=== PATIENT | male | born 1965 | race Caucasian/White ===

== ENCOUNTER → 2019-01-04 | Outpatient (CLI) | payer BC ==
[2019-01-04 16:10] LABS: HGB 14.5 gm/dL (13.0-17.5); MCH 31.1 pg (25.0-35.0); MCHC 31.6 g/dL (31.0-37.0); MCV 98.6 fL (80.0-100.0); Mean Platelet Volume 8.3; Platelet Count 162 k/uL (150-450); RBC 4.66 m/uL (4.30-5.90); WBC 4.7 k/uL (3.8-10.6)
[2019-01-04 16:17] LABS: ALT 41 U/L (21-72); AST 22 U/L (17-59); Albumin 4.2 g/dL (3.5-5.0); Alkaline Phosphatase 81 U/L (38-126); Anion Gap 9 mmol/L; Blood Urea Nitrogen 22 mg/dL (9-20); Calcium 9.1 mg/dL (8.4-10.2); Carbon Dioxide 24 mmol/L (22-30); Chloride 108 mmol/L (98-107); Glucose 98 mg/dL (74-99); Potassium 4.7 mmol/L (3.5-5.1); Sodium 141 mmol/L (137-145); Total Bilirubin 0.7 mg/dL (0.2-1.3); Total Protein 6.7 g/dL (6.3-8.2)
[2019-01-04 16:18] LABS: Partial Thromboplastin Time 24.9 sec (22.0-30.0); Prothrombin Time 10.5 sec (9.0-12.0)
[2019-01-04 16:54] LABS: Appearance,Urine Clear (Clear); Bilirubin,Urine Negative (Negative); Blood,Urine Negative (Negative); Color,Urine Yellow; Glucose,Urine (UA) Negative (Negative); Ketones,Urine Trace (Negative); Leukocyte Esterase,Urine Negative (Negative); Nitrite,Urine Negative (Negative); Protein,Urine Negative (Negative); Specific Gravity,Urine 1.014 (1.001-1.035); Urobilinogen,Urine <2.0 mg/dL (<2.0)
== END | disposition home or self-care (01) ==
LOC: LABPAT 15:30
PROVIDERS: ATTEND Orthopaedic Surgery
DX: Z01.812 Encounter for preprocedural laboratory examination (principal)
CPT/HCPCS: 80053; 81003; 85027; 85610; 85730; 87070

== ENCOUNTER 2019-01-15 05:32 | Inpatient (IN) | payer BC ==
[~2019-01-15 05:32] MED LIST: ACETAMINOPHEN TAB 500 MG TAB PO ONE; MELOXICAM 7.5 MG TAB PO ONE; TRANEXAMIC ACID 1,000 MG in SODIUM CHLORIDE 0.9% 100 ML IVPB ONE; ceFAZolin IN SWFI 2 GM/20 ML SYRINGE IVP ONE
[2019-01-15] MEDS ORDERED: fentaNYL (PF) 50 MCG/ML 2 ML AMP IV PRN (05:38)
[2019-01-15] MEDS ORDERED: LIDOCAINE 1% 20 ML VIAL (10MG/ML) FOR IV START INTRADERMA PRN (05:38)
[2019-01-15] MEDS ORDERED: MIDAZOLAM (PF) 2 MG/2 ML VIAL IV PRN (05:38)
[2019-01-15] MEDS ORDERED: ROPIVACAINE 246.25 MG, EPINEPHrine 0.5 MG, KETOROLAC 30 MG, cloNIDine HCL/PF 80 MCG, WA... MISCELLANE ONE ×5 (05:51)
[2019-01-15] MEDS: LACTATED RINGERS 1,000 ML IV SCH (08:17)
[2019-01-15] MEDS ORDERED: ROPIVACAINE 1,100 MG, SODIUM CHLORIDE 0.9% 500 ML 330 ML MISCELLANE PRN ×2 (08:47)
--- NOTE | 2019-01-15 08:54 | P.ONQ ---
Anesthesiology Proc Note - PNB - Peripheral Nerve Block Performed Right Adductor Canal Infusion Time Out Performed: Yes Procedure Start Time: 08:20 Indication: Acute Post-Operative Pain Specifically requested for management of pain by DrMora: Kane Hernandez Sedation Type: Sedate with meaningful contact maintained Preparation: Sterile Prep Position: Supine Catheter Depth at Skin (cm): 8 Catheter: Indwelling Needle Types: Other (see comment) (Pajunk) Needle Size: 100mm (4") Needle Gauge: 18 Technique: Ultrasound Injectate: 0.5% Ropivacaine (see comment for volume) (20) Blood Aspirated: No Pain Paresthesia on Injection Noted: No Resistance on Injection: Normal Events: Uneventful and Well Tolerated
[2019-01-15] MEDS ORDERED: hydrOXYzine PAMOATE 25 MG CAP PO PRN (08:59)
[2019-01-15] MEDS ORDERED: BISACODYL 10 MG SUPP RECTAL PRN (08:59)
[2019-01-15] MEDS ORDERED: DIAZEPAM 5 MG TAB PO PRN (08:59)
[2019-01-15] MEDS ORDERED: NA PHOS,M-B/NA PHOS,DI-BA 133 ML ENEMA RECTAL PRN (08:59)
[2019-01-15] MEDS ORDERED: HYDROcodone/APAP 5-325MG 1 EACH TAB PO PRN (08:59)
[2019-01-15] MEDS ORDERED: NALOXONE 0.4 MG/ML 1 ML VIAL IV PRN (08:59)
[2019-01-15] MEDS ORDERED: HYDROmorphone 1 MG/ML 1 ML SYRINGE IVP PRN (08:59)
[2019-01-15] MEDS ORDERED: HYDROmorphone 0.5 MG/0.5 ML SYRINGE IVP PRN ×2 (08:59)
[2019-01-15] MEDS ORDERED: ONDANSETRON 4 MG/2 ML VIAL IVP PRN (08:59)
[2019-01-15] MEDS ORDERED: MAGNESIUM HYDROXIDE 2,400 MG/10 ML CUP PO PRN (08:59)
[2019-01-15] MEDS ORDERED: RIVAROXABAN 10 MG TAB PO SCH (09:00)
[2019-01-15] MEDS ORDERED: MIDAZOLAM 2 MG/2 ML VIAL ONE (09:21)
[2019-01-15] MEDS ORDERED: GLYCOPYRROLATE 0.2 MG/ML 2 ML VIAL ONE (09:21)
[2019-01-15] MEDS ORDERED: TRANEXAMIC ACID 1,000 MG/10 ML VIAL ONE (09:21)
[2019-01-15] MEDS ORDERED: fentaNYL (PF) 50 MCG/ML 2 ML AMP ONE (09:21)
[2019-01-15] MEDS ORDERED: SODIUM CHLORIDE 0.9% 100 ML BAG ONE (09:21)
[2019-01-15] MEDS ORDERED: HYDROmorphone (PF) 1 MG/ML ONE (09:21)
[2019-01-15] MEDS ORDERED: PROPOFOL 10 MG/ML 20 ML VIAL IV ONE (09:21)
[2019-01-15] MEDS ORDERED: PHENYLEPHRINE-0.9% NACL SYG 1 MG/10 ML SYRINGE ONE (09:21)
[2019-01-15] MEDS ORDERED: ceFAZolin 3,000 MG in SODIUM CHLORIDE 0.9% IRRIGATIO 3,000 ML IRRIGATION ONE (09:58)
[2019-01-15] MEDS ORDERED: LACTATED RINGERS 1,000 ML IV ONE (10:24)
--- NOTE | 2019-01-15 10:56 | P.OP ---
Date of Procedure: 01/15/19 Preoperative Diagnosis: Severe osteoarthritis right knee Postoperative Diagnosis: Severe osteoarthritis right knee Procedure(s) Performed: Right total knee arthroplasty Implants: Blmu and Nephew Journey II CR Oxinium cruciate retaining femoral component size 6, right Blum & Nephew Journey right nonporous tibial baseplate size 6 Blum & Nephew Journey II, XLPE Deep Dished articular insert, size 11 mm, Size 5 -6 right Blum & Nephew Journey BCS resurfacing oval patellar component, 32 mm All components were cemented using Palacos R bone cement.. The articulation is Oxinium on polyethylene. Anesthesia: spinal Surgeon: Kane Hernandez Associate Professor #1: Hilda Flanagan Estimated Blood Loss (ml): 25 Pathology: other (Bone and cartilage) Condition: stable Disposition: PACU Indications for Procedure: After failure of conservative treatment we discussed the surgical and nonsurgical treatment options at length. Patient wishes to proceed with a total knee arthroplasty. Complications specific to this procedure were discussed at length, including but not limited to infection, bleeding, stiffness , and nerve injury. Patient is aware of all these complications and informed consent was obtained Operative Findings: The operative findings are consistent with severe osteoarthritis of the right knee Description of Procedure: Patient was seen in the preoperative area consent was reviewed and operative site was marked with a skin marker. An adductor canal pain catheter was placed by anesthesia in the preoperative area. Patient was then brought to the operating room and given preoperative antibiotics intravenously. A spinal anesthetic was administered by the anesthesia department. A tourniquet was placed on the upper thigh and the lower extremity was prepped and draped in usual sterile fashion. A gram of transexamic acid was given. A universal timeout was then performed which confirmed the patient's name, surgical site, ALLERGIES, and consent. The lower extremity was then exsanguinated and tourniquet was inflated to 250 mmHg. A standard and anterior midline approach to the knee was performed. The skin and subcutaneous tissue was dissected down to the patellar tendon. A medial parapatellar arthrotomy was then performed. The knee was then extended, the patellar was everted, and the knee was again flexed. Anterior horns of both menisci were excised, and a release was performed to the posterior medial aspect of the knee. On gross visual inspection, there was complete loss of articular cartilage in the medial and patellofemoral joint spaces. There was also significant cartilage damage in the lateral compartment. There were multiple periarticular osteophytes which were then removed with a Ronguer. The femoral canal was then opened with the appropriate drill, and the intramedullary femoral cutting guide was then placed and set for 5 of valgus. The distal femoral cutting block was then pinned in place, and the distal femur was then cut. The cutting block was then removed and the cut was checked for flatness. Next, the sizing guide was then placed and set for 3 external rotation based off of the epicondylar axis and Whitesides line. After the femur was sized, the appropriate 4-in-1 cutting block was then pinned in place. The anterior condyles were cut without notching. The posterior and chamfer cuts were performed while protecting the collateral ligaments. The cutting block was then removed, and the femoral canal was plugged with autologous bone. Attention was then directed to the tibia. The remaining ACL was removed with a Ronguer, and the tibia was then gently subluxed forward with a large bent knee retractor. Any remaining menisci was excised. The posterior lateral corner was cauterized in order to cauterize the lateral geniculate artery. The extra medullary tibial cutting guide was then placed, set for the appropriate rotation , slope, and depth of resection. The proximal tibia cutting guide was then pinned in place. Proximal tibia was then cut and sized. Next trials were then placed with the appropriate-sized insert. The knee was able to fully extend and flex to 130 and was stable throughout all range of motion. The knee was then extended, patella everted. Patella was then measured, and then using an osteotomy guide, the patella was cut at the appropriate level. The patella was then measured and drilled and the patella trial was then placed. The knee was then taken through range of motion with the patella trial and the patella tracked normally. The knee was then extended patella trial was then removed and the patella was everted. Knee was then flexed and lug holes were drilled through the femoral trial and the femoral trial was then removed. The tibial was then exposed, and the tibial broach guide was then pinned in place after it was set for the appropriate rotation to allow for the most coverage without overhang. The tibia was then reamed and broached. The cut surfaces of bone were then irrigated with pulsatile lavage. The posterior structures were injected with the ropivacaine solution. The knee was also irrigated with Irrisept solution. The components were then opened, the cement was mixed, and the components were then cemented in place. The cement was allowed to harden with the knee in full extension. While the cement was hardening, the remaining soft tissues were then injected with a ropivacaine solution, which consisted of 246.25 mg of ropivacaine, 0.5 mg of epinephrine, 30 mg of Toradol, 80 g of clonidine, and 48.45 mL of sterile water, for a total of 100 mL of fluid injected. After the cemented hardened. The tourniquet was released, and hemostasis was obtained. A second gram of transexamic acid was given. The knee was again irrigated. The knee was again taken through range of motion and found to be stable throughout all range of motion of 0-130 , and the patella tracked normally. The fascia was then closed with #2 strata fix suture. The subcutaneous tissue was closed with 3-0 Vicryl and 3-0 strata fix. Dermabond glue was used for the skin and placed with the knee in flexion. The patient was placed in a sterile silver dressing. Patient was then transferred to recovery room in stable condition. The learning and development assistant AURORA Amaya was required due the complexity surgery and the need for a skilled assembler surgical garment. She assisted in positioning, draping, retraction, and closure of the wound.
--- NOTE | 2019-01-15 11:51 | XR ---
EXAMINATION TYPE: XR knee limited RT DATE OF EXAM: 01/15/2019 CLINICAL HISTORY: Right knee pain and arthritis status post total knee replacement. TECHNIQUE: Portable AP and crosstable lateral views of the right knee are obtained immediately posto peratively. COMPARISON: None FINDINGS: Metallic hardware from total right knee arthroplasty is seen and appears satisfactory in a lignment and position. There is evidence of recent surgery with diffuse subcutaneous gas , vertical skin quirino, and percutaneous suprapatellar surgical drain noted. IMPRESSION: METALLIC HARDWARE FROM TOTAL RIGHT KNEE ARTHROPLASTY IS SATISFACTORY IN ALIGNMENT.
[2019-01-15 12:03] VITALS: RESP 16
[2019-01-15] MEDS: SODIUM CHLORIDE 0.9% 1,000 ML IV SCH (13:02)
[2019-01-15 13:07] VITALS: BMI 33.0
--- NOTE | 2019-01-15 14:13 | P.CONS ---
History of Present Illness - Reason for Consult Atrial fibrillation - History of Present Illness 53-year-old pleasant gentleman was admitted for right knee arthroplasty successfully underwent surgery denied any significant pain patient doesn't have any drain in place. Patient does have history of atrial fibrillation rate controlled with history of paroxysmal A. fib patient is on an aspirin for a A. fib. Presently holding of on aspirin as patient was started on Xarelto for DVT prophylaxis by arthritic surgery. Patient did not pass gas did not move his bowel get. Denied any shortness of breath chest pain nausea vomiting dysuria. No other signs or symptoms of sepsis Review of Systems REVIEW OF SYSTEMS: CONSTITUTIONAL: No fever, no malaise, no fatigue. HEENT: No recent visual problems or hearing problems. Denied any sore throat. CARDIOVASCULAR: No chest pain, orthopnea, PND, no palpitations, no syncope. PULMONARY: No shortness of breath, no cough, no hemoptysis. GASTROINTESTINAL: No diarrhea, no nausea, no vomiting, no abdominal pain. NEUROLOGICAL: No headaches, no weakness, no numbness. HEMATOLOGICAL: Denies any bleeding or petechiae. GENITOURINARY: Denies any burning micturition, frequency, or urgency. MUSCULOSKELETAL/RHEUMATOLOGICAL: Denies any joint pain, swelling, or any muscle pain. ENDOCRINE: Denies any polyuria or polydipsia. The rest of the 14-point review of systems is negative. Past Medical History Past Medical History: Atrial Fibrillation, Osteoarthritis (OA) History of Any Multi-Drug Resistant Organisms: None Reported Past Surgical History: Bariatric Surgery, Orthopedic Surgery Additional Past Surgical History / Comment(s): BARIATRIC SX, ADOMINOPLASTY, EGD. BILAT SHOULDER SX (RT-X3) LT X1. BILAT KNEE SCOPES Past Anesthesia/Blood Transfusion Reactions: No Reported Reaction Past Psychological History: No Psychological Hx Reported Smoking Status: Former smoker Past Alcohol Use History: Occasional Additional Past Alcohol Use History / Comment(s): QUIT SMOKING IN 2018 Past Drug Use History: None Reported - Past Family History Mother Family Medical History: No Reported History Medications and Allergies Home Medications Medication Instructions Recorded Confirmed Type Aspirin 325 mg PO DAILY 01/08/19 01/15/19 History Diltiazem Cd [Cardizem Cd] 120 mg PO DAILY 01/08/19 01/15/19 History Meloxicam 15 mg PO DAILY 01/08/19 01/15/19 History Testosterone 60 mg TOPICAL DAILY 01/08/19 01/15/19 History Allergies Allergy/AdvReac Type Severity Reaction Status Date / Time Latex, Natural Rubber Allergy Rash/Hives Verified 01/15/19 12:24 Physical Exam Vitals: Vital Signs Temp Pulse Pulse Resp BP BP Pulse Ox 01/15/19 12:15 65 16 105/58 97 01/15/19 12:00 66 16 108/58 97 01/15/19 11:45 75 14 102/51 97 01/15/19 11:31 97.8 F 62 13 101/58 96 01/15/19 09:05 74 16 120/79 99 01/15/19 08:44 64 16 114/65 99 01/15/19 07:50 97.5 F L 67 16 117/82 99 Intake and Output 01/14/19 01/15/19 01/15/19 22:59 06:59 14:59 Intake Total 1401 Output Total 25 Balance 1376 Intake: IV 1401 Output: Estimated Blood Loss 25 PHYSICAL EXAMINATION: GENERAL: The patient is alert and oriented x3, not in any acute distress. Well developed, well nourished. HEENT: Pupils are round and equally reacting to light. EOMI. No scleral icterus. No conjunctival pallor. Normocephalic, atraumatic. No pharyngeal erythema. No thyromegaly. CARDIOVASCULAR: S1 and S2 present. No murmurs, rubs, or gallops. PULMONARY: Chest is clear to auscultation, no wheezing or crackles. ABDOMEN: Soft, nontender, nondistended, normoactive bowel sounds. No palpable organomegaly. MUSCULOSKELETAL: Deferred to orthopedic surgery EXTREMITIES: No cyanosis, clubbing, or pedal edema. NEUROLOGICAL: Gross neurological examination did not reveal any focal deficits. SKIN: No rashes. Assessment and Plan Plan: -Atrial ablation presently rate controlled sinus rhythm: Patient will be resumed on Cardizem oral which is her home medication and home dose anti- correlation as mentioned above -Right knee arthroplasty: Pain management due to prophylaxis as per primary service -Primary osteoarthritis
[2019-01-15] MEDS: HYDROcodone/APAP 5-325MG 1 EACH TAB PO PRN ×2 (15:24→23:08)
[2019-01-15] MEDS: ceFAZolin IN SWFI 2 GM/20 ML SYRINGE IVP SCH (18:39)
[2019-01-15] MEDS ORDERED: SENNOSIDES-DOCUSATE SODIUM 1 EACH TAB PO SCH (21:00)
[2019-01-16] MEDS: SODIUM CHLORIDE 0.9% 1,000 ML IV SCH (01:43)
[2019-01-16] MEDS: ceFAZolin IN SWFI 2 GM/20 ML SYRINGE IVP SCH (01:57)
[2019-01-16] MEDS: HYDROcodone/APAP 5-325MG 1 EACH TAB PO PRN ×2 (05:04→10:54)
[2019-01-16] MEDS: LACTATED RINGERS 1,000 ML IV SCH (06:10)
[2019-01-16 07:56] LABS: Basophils % (A) 0 %; Eosinophils # (A) 0.1 k/uL (0-0.7); Eosinophils % (A) 2 %; HCT 41.6 % (39.0-53.0); HGB 13.1 gm/dL (13.0-17.5); Lymphocytes % (A) 18 %; MCH 31.1 pg (25.0-35.0); MCHC 31.4 g/dL (31.0-37.0); MCV 98.9 fL (80.0-100.0); Mean Platelet Volume 8.3; Monocytes # (A) 0.3 k/uL (0-1.0); Monocytes % (A) 5 %; Neutrophils # (A) 4.4 k/uL (1.3-7.7); Neutrophils % (A) 75 %; Platelet Count 151 k/uL (150-450); RDW 12.8 % (11.5-15.5); WBC 5.9 k/uL (3.8-10.6)
[2019-01-16] MEDS ORDERED: MELOXICAM 7.5 MG TAB PO SCH (09:00)
[2019-01-16] MEDS ORDERED: DILTIAZEM CD 120 MG CAP.ER.24H PO SCH (09:00)
[2019-01-16] MEDS ORDERED: RIVAROXABAN 10 MG TAB PO SCH (09:00)
[2019-01-16 09:14] VITALS: BP 124/60; PULSE 65; TEMP 99.1
--- NOTE | 2019-01-16 09:48 | P.DS ---
Providers Date of admission: 01/15/19 05:32 Expected date of discharge: 01/16/19 Attending physician: Kane Hernandez Consults: 01/15/19 08:59 Consult Physician Routine Consulting Provider: Hakeem Pichardo Consult Reason/Comments: medical management Do you want consulting provider notified?: Yes Primary care physician: Jesse Rai - Discharge Diagnosis(es) (1) Osteoarthritis of right knee Current Visit: Yes Status: Acute (2) S/P total knee arthroplasty Current Visit: Yes Status: Acute Hospital Course: This is a 53-year-old male with known history of degenerative arthritis of the right knee. The patient presents for evaluation. After discussion and consideration patient elects to proceed with total knee arthroplasty. The patient is seen preoperatively by Dr. Hernandez and medically cleared for surgery by their primary care physician. Patient is [facility] to [facility] on 01/16/2019 for total knee arthroplasty. The procedures performed without complication or sequelae. The patient is doing well postoperatively. Labs and vital signs are stable on day of discharge. On day of discharge patient's knee incision is healing well. There is minimal erythema. There is no drainage noted at this time. There is minimal soft tissue swelling to the knee. Patient has full foot and ankle motion without difficulty or pain. Calf is soft and nontender to palpation. Neurovascular status to the right lower extremity is intact. Patient is discharged home in good condition. Opioid start talking form is reviewed and signed at patient bedside. Please see med rec for accurate list of home medications. Plan - Discharge Summary Discharge Rx Participant: Yes New Discharge Prescriptions: New HYDROcodone/APAP 5-325MG [[place] 5-325] 1 - 2 tab PO Q6HR PRN #56 tab PRN Reason: Pain Rivaroxaban [Xarelto] 10 mg PO DAILY #11 tab Sennosides [Senokot] 1 tab PO BID #60 tablet No Action Aspirin 325 mg PO DAILY Diltiazem Cd [Cardizem Cd] 120 mg PO DAILY Testosterone 60 mg TOPICAL DAILY Meloxicam 15 mg PO DAILY Discharge Medication List Aspirin 325 mg PO DAILY 01/08/19 [History] Diltiazem Cd [Cardizem Cd] 120 mg PO DAILY 01/08/19 [History] Meloxicam 15 mg PO DAILY 01/08/19 [History] Testosterone 60 mg TOPICAL DAILY 01/08/19 [History] HYDROcodone/APAP 5-325MG [[place] 5-325] 1 - 2 tab PO Q6HR PRN #56 tab 01/16/19 [ Rx] Rivaroxaban [Xarelto] 10 mg PO DAILY #11 tab 01/16/19 [Rx] Sennosides [Senokot] 1 tab PO BID #60 tablet 01/16/19 [Rx] Follow up Appointment(s)/Referral(s): Kane Hernandez DO [Doctor of Osteopathic Medicine] - 2 Weeks Ambulatory/Diagnostic Orders: Continuous Passive Motion (CPM) Machine [DME.AMB1] Time Frame: 3 Weeks, Location : None Selected Activity/Diet/Wound Care/Special Instructions: Weightbearing as tolerated with a walker. CPM 5-6h daily. Leave dressing intact. May be removed by home care nurse or by patient in 10 days. May shower with dressing on. Please follow up with [facility] and call with any questions or concerns, . Discharge Disposition: HOME WITH HOME HEALTH SERVICES
--- NOTE | 2019-01-16 11:51 | P.PN ---
Progress Note - Text Anesthesia POD 1. Patient is status post right TKR under spinal anesthesia anesthesia with a right adductor canal catheter placed for postoperative pain relief. With ropivacaine 0.2% running at 8 cc's per hour, the patient's VAS is (1, 3). Catheter site is clean dry and intact.
== END 2019-01-16 13:10 | disposition home health service (06) | DRG 470 ==
LOC: 2ORMAIN 05:32 → 4SSUR 11:51
PROVIDERS: ADMIT Orthopaedic Surgery; ATTEND Orthopaedic Surgery
PROC: 0SRC069 Replacement of Right Knee Joint with Oxidized Zirconium on Polyethylene Synthetic Substitute, Cemented, Open Approach (ICD-10-PCS; principal; 2019-01-15 09:20)
DX: M17.11 Unilateral primary osteoarthritis, right knee (principal); I48.0 Paroxysmal atrial fibrillation; Z79.82 Long term (current) use of aspirin; Z79.1 Long term (current) use of non-steroidal anti-inflammatories (NSAID); Z79.890 Hormone replacement therapy; Z79.899 Other long term (current) drug therapy; Z98.84 Bariatric surgery status; Z87.891 Personal history of nicotine dependence; Z91.040 Latex allergy status
CPT/HCPCS: 85025; 88300

== ENCOUNTER → 2019-02-26 | Outpatient (CLI) | payer BC ==
[2019-02-26 15:59] LABS: HGB 12.7 gm/dL (13.0-17.5); MCH 30.3 pg (25.0-35.0); MCHC 31.8 g/dL (31.0-37.0); MCV 95.3 fL (80.0-100.0); Mean Platelet Volume 8.4; Platelet Count 189 k/uL (150-450); RBC 4.19 m/uL (4.30-5.90); RDW 13.1 % (11.5-15.5); WBC 5.5 k/uL (3.8-10.6)
[2019-02-26 16:16] LABS: Anion Gap 6 mmol/L; Blood Urea Nitrogen 21 mg/dL (9-20); Carbon Dioxide 28 mmol/L (22-30); Chloride 107 mmol/L (98-107); Potassium 4.7 mmol/L (3.5-5.1); Sodium 141 mmol/L (137-145)
== END | disposition home or self-care (01) ==
LOC: LABPAT 15:24
PROVIDERS: ATTEND Internal Medicine Interventional Cardiology
DX: Z01.812 Encounter for preprocedural laboratory examination (principal); I42.8 Other cardiomyopathies; I48.1 Persistent atrial fibrillation
CPT/HCPCS: 36415; 80051; 82565; 84520; 85027

== ENCOUNTER 2019-03-13 07:42 | Day surgery (SDC) | payer BC ==
[2019-03-07 14:36] VITALS: BMI 33.2
[~2019-03-13 07:42] MED LIST changes: -ACETAMINOPHEN TAB 500 MG TAB PO ONE; +ALPRAZolam 0.25 MG TAB PO PRN; +ALPRAZolam 0.5 MG TAB PO PRN; +ASPIRIN 325 MG TAB PO ONE; +ATORVASTATIN 80 MG TAB PO ONE; -MELOXICAM 7.5 MG TAB PO ONE; +NITROGLYCERIN SL TABS 0.4 MG TAB SUBLINGUAL PRN; +SODIUM CHLORIDE 0.9% 1,000 ML IV SCH; +SODIUM CHLORIDE 0.9% 1,000 ML in EMPTY BAG 1 BAG IV ONE; -TRANEXAMIC ACID 1,000 MG in SODIUM CHLORIDE 0.9% 100 ML IVPB ONE; -ceFAZolin IN SWFI 2 GM/20 ML SYRINGE IVP ONE
[2019-03-13 08:02] VITALS: TEMP 97.8
[2019-03-13] MEDS ORDERED: IV FLUID CONTINUATION 950 ML IV ONE (10:58)
[2019-03-13] MEDS ORDERED: fentaNYL (PF) 50 MCG/ML 2 ML AMP IV ONE (11:18)
[2019-03-13] MEDS ORDERED: MIDAZOLAM (PF) 2 MG/2 ML VIAL IV ONE (11:18)
[2019-03-13] MEDS ORDERED: LIDOCAINE 1% INJ 10MG/ML (20 ML MDV) SQ ONE (11:19)
[2019-03-13] MEDS ORDERED: VERAPAMIL SYRINGE (5 MG/10 ML) INTRAARTER ONE (11:27)
[2019-03-13] MEDS ORDERED: HEPARIN SODIUM 1,000 UN/ML (10ML VL) IV ONE (11:30)
[2019-03-13] MEDS ORDERED: IOPAMIDOL-370 125ML BTL INJ ONE (11:33)
[2019-03-13] MEDS ORDERED: RX INFO: IV CONTRAST WAS GIVEN 1 EACH MISC MISCELLANE PRN (11:48)
[2019-03-13] MEDS ORDERED: SODIUM CHLORIDE 0.9% 1,000 ML IV SCH (12:00)
--- NOTE | 2019-03-13 13:01 | CC ---
CARDIAC CATHETERIZATION REPORT DATE OF SERVICE: 03/13/2019 PERFORMING PHYSICIAN: Ozzie Hinojosa MD, Rubbing Bed Operator. PROCEDURE PERFORMED: 1. Selective right and left coronary angiogram. 2. Left heart catheterization. INDICATION: This is a pleasant 53-year-old gentleman who was diagnosed recently with atrial fibrillation and was found to have cardiomyopathy with EF of 40%. He was brought today to undergo a heart catheterization to rule out severe CAD. APPROACH: Right radial artery. COMPLICATION: None. LEVEL OF SEDATION: Moderate with sedation length of 19 minutes. PROCEDURE DESCRIPTION: After obtaining an informed consent, the patient was brought to cardiac labor operator. The right radial artery was cannulated using ultrasound guidance, the micropuncture wire passed easily, then I placed a 6-Lebanese sheath in the right radial artery. After that, I gave the patient 10,000 units of heparin IV and 2 mg of verapamil IA. I did selective right and left coronary angiogram using JR4 and JL3.5 catheters. Left heart catheterization was performed using 6-Lebanese pigtail catheter. The procedure was completed without any complication. CORONARY ANGIOGRAM: The right coronary artery is a large caliber vessel and it is a dominant vessel and appeared to be angiographically normal. LEFT MAIN: The left main is angiographically normal. It bifurcates into left circumflex and left anterior descending artery. LEFT CIRCUMFLEX: The left circumflex is a large caliber vessel. It is a codominant vessel. The left circumflex is angiographically normal and gives rise into the first and second OM branches, both appeared to be angiographically normal. LAD: The LAD is a large caliber vessel and seems to be angiographically normal as well. The LAD gives rise into multiple small diagonal branches, they appear to be angiographically normal. HEMODYNAMICS: The left ventricular end-diastolic pressure is 10 mmHg without significant gradient across the aortic valve. CONCLUSION: Normal coronaries. POSTPROCEDURE MANAGEMENT: 1. Resume anticoagulation once we have hemostasis in the right radial artery. 2. Proceed with LOKI cardioversion down the line. MMODL / IJN: [id number] /
[2019-03-13 14:02] VITALS: BP 122/73; PULSE 84; RESP 18
== END 2019-03-13 16:55 | disposition home or self-care (01) ==
LOC: CATHCVL 07:42
PROVIDERS: ATTEND Internal Medicine Interventional Cardiology
DX: I48.2 Chronic atrial fibrillation (principal); I48.1 Persistent atrial fibrillation; I34.0 Nonrheumatic mitral (valve) insufficiency; I42.8 Other cardiomyopathies; I10 Essential (primary) hypertension; Z79.82 Long term (current) use of aspirin; Z79.899 Other long term (current) drug therapy; Z79.01 Long term (current) use of anticoagulants; Z79.890 Hormone replacement therapy; Z91.040 Latex allergy status; Z72.0 Tobacco use; Z82.49 Family history of ischemic heart disease and other diseases of the circulatory system; Z79.1 Long term (current) use of non-steroidal anti-inflammatories (NSAID)
CPT/HCPCS: 93458; C1769; C1894; J2001; J3010; J1644; Q9967; J2250

== ENCOUNTER 2019-03-16 06:17 | Day surgery (SDC) | payer BC ==
[2019-03-15 14:21] VITALS: BMI 34.4
[2019-03-16] MEDS ORDERED: SODIUM CHLORIDE 0.9% 1,000 ML IV SCH (06:26)
[2019-03-16] MEDS ORDERED: SODIUM CHLORIDE 0.9% 500 ML 500 ML IV ONE (06:34)
[2019-03-16 07:18] VITALS: TEMP 97.8
[2019-03-16] MEDS ORDERED: PROPOFOL 10 MG/ML 20 ML VIAL IV ONE (07:30)
[2019-03-16] MEDS: BENZOCAINE SPRAY 1 CAN MUCOUS MEM ONE ×2 (07:37→07:39)
[2019-03-16 08:53] VITALS: RESP 16
--- NOTE | 2019-03-16 09:27 | ECHOT ---
TRANSESOPHAGEAL ECHOCARDIOGRAM DATE OF SERVICE: 03/16/2019 PERFORMING PHYSICIAN: Ozzie Hinojosa MD, Body Welder. PROCEDURE PERFORMED: Transesophageal echocardiogram. INDICATION: This is a 53-year-old gentleman who was diagnosed with atrial fibrillation and the plan was to pursue with cardioversion with the transesophageal echocardiogram is to rule out any intracardiac thrombus. COMPLICATION: None. LEVEL OF SEDATION: The sedation was performed using propofol with STEEPING PRESS OPERATOR in the room. PROCEDURE DESCRIPTION: After obtaining an informed consent, explaining the procedure, benefits, risks, complications and alternatives, the patient was brought to the transesophageal echocardiogram suite. A pulse oximetry and heart rate monitors were attached to the patient prior to the procedure. The patient's throat was sprayed using lidocaine locally. Following that, the patient was turned into left lateral position. A bite guard was placed and the patient was then sedated with the above doses of Versed and fentanyl in divided doses. Following that, the transesophageal echocardiogram probe was advanced through the bite guard into the mid esophagus where 2-D echocardiogram images as well as color Doppler images of various cardiac structures were obtained. We evaluated the interatrial septum using 2-D echocardiogram, color Doppler, and contrast study. The procedure was completed. There were no complications. FINDINGS: The left ventricle appears to be dilated. The left ventricular systolic function seems to be impaired with ejection fraction around 40%. The right ventricle is of normal size and function. The left atrium appeared to be dilated. The left atrial appendage appeared to be free from any thrombus. The interatrial septum appeared to be intact. The aortic valve is trileaflet valve without stenosis with mild insufficiency. The mitral valve seems to be mildly thickened with evidence of moderate MR with central jet. There was mild tricuspid regurgitation and mild pulmonic insufficiency seen. The aortic root appeared to be within normal limits for dimension. CONCLUSION: 1. Normal left atrial appendage without any evidence of thrombus. 2. No evidence of any intracardiac thrombus. 3. Intact interatrial septum without any evidence of shunt. 4. Moderate biatrial enlargement. 5. Impaired left ventricular function with ejection fraction around 40%. 6. Moderate mitral regurgitation seen. 7. Mild aortic insufficiency seen as well. 8. Normal aortic root dimension. 9. No evidence of pericardial effusion. MMODL / IJN: [id number] /
[2019-03-16 09:47] VITALS: BP 116/78; PULSE 62
--- NOTE | 2019-03-16 10:21 | CE ---
CARDIAC ELECTROPHYSIOLOGY REPORT CARDIOVERSION: DATE OF SERVICE: 03/16/2019 PERFORMING PHYSICIAN: Ozzie Hinojosa MD. PROCEDURE PERFORMED: Cardioversion of atrial fibrillation. INDICATION: Paroxysmal atrial fibrillation. PROCEDURE DESCRIPTION: After transesophageal echocardiogram was performed and left atrial appendage and intracardiac thrombus were ruled out, we pursued with the cardioversion. The patient cardioverted from atrial fibrillation to normal sinus mechanism using 200 joules on first attempt. CONCLUSION: Successful cardioversion of atrial fibrillation to normal sinus mechanism using 200 joules on first attempt. POSTPROCEDURE MANAGEMENT: 1. Continue the Cardizem CD. 2. Continue oral anticoagulation. 3. Follow up with the patient. MMODL / IJN: [id number] /
--- NOTE | 2019-03-21 08:47 | CDI ---
Date: 03/21/19 CDS/Sales Service Manager Name: Naomi Rodriguez Phone: If any questions, call Vida Garcia Workday Director at [phone] Patient Name: Howard Hook Admit Date: 03/16/19 Discharge Date: 03/16/19 ATTENTION: The [facility] Coding Staff appreciate your assistance in clarifying documentation. Please respond to the clarification below the line at the bottom and electronically sign. The [facility] Coding staff will review the response and follow-up if needed. Please note: Queries are made part of the Legal Health Record. If you have any questions, please contact the Workday Director. Dear Dr. Hinojosa, Please provide clarification as to the type of atrial fibrillation. on the cardioversion and H&P state paroxysmal (in one area) and also on the H&P under Assessment Persistent atrial fibrillation is documented. Please clarify. Thank you for your kind consideration. MTDD
== END 2019-03-16 09:47 | disposition home or self-care (01) ==
LOC: CATHCVL 06:17
PROVIDERS: ATTEND Internal Medicine Interventional Cardiology
DX: I08.3 Combined rheumatic disorders of mitral, aortic and tricuspid valves (principal); I48.1 Persistent atrial fibrillation; I48.0 Paroxysmal atrial fibrillation; I42.8 Other cardiomyopathies; I51.9 Heart disease, unspecified; I10 Essential (primary) hypertension; Z72.0 Tobacco use; Z82.49 Family history of ischemic heart disease and other diseases of the circulatory system; Z79.01 Long term (current) use of anticoagulants; Z79.1 Long term (current) use of non-steroidal anti-inflammatories (NSAID); Z79.899 Other long term (current) drug therapy; Z91.040 Latex allergy status
CPT/HCPCS: 93312; 93320; 93325; 92960; J2704; 93005

== ENCOUNTER → 2019-06-14 | Outpatient (CLI) | payer BC ==
[2019-06-14 09:53] LABS: HCT 47.9 % (39.0-53.0); HGB 15.5 gm/dL (13.0-17.5); MCH 31.5 pg (25.0-35.0); MCHC 32.4 g/dL (31.0-37.0); Platelet Count 173 k/uL (150-450); RBC 4.94 m/uL (4.30-5.90); RDW 13.7 % (11.5-15.5); WBC 4.4 k/uL (3.8-10.6)
[2019-06-14 10:04] LABS: African American GFR (CKD) >90 (>60 ml/min/1.73 sqM); Anion Gap 5 mmol/L; Blood Urea Nitrogen 15 mg/dL (9-20); Carbon Dioxide 28 mmol/L (22-30); Chloride 108 mmol/L (98-107); Glucose 101 mg/dL (74-99); Non-African American GFR(CKD) >90 (>60 ml/min/1.73 sqM); Potassium 4.2 mmol/L (3.5-5.1); Sodium 141 mmol/L (137-145)
== END | disposition home or self-care (01) ==
LOC: LABPAT 09:26
PROVIDERS: ATTEND Internal Medicine Clinical Cardiac Electrophysiology
DX: Z01.812 Encounter for preprocedural laboratory examination (principal); I48.1 Persistent atrial fibrillation; I42.8 Other cardiomyopathies
CPT/HCPCS: 80051; 82565; 82947; 84520; 85027

== ENCOUNTER 2019-07-03 06:16 | Day surgery (SDC) | payer BC ==
[2019-06-26 11:47] VITALS: BMI 33.2
[~2019-07-03 06:16] MED LIST changes: -ALPRAZolam 0.25 MG TAB PO PRN; -ALPRAZolam 0.5 MG TAB PO PRN; -ASPIRIN 325 MG TAB PO ONE; -ATORVASTATIN 80 MG TAB PO ONE; -NITROGLYCERIN SL TABS 0.4 MG TAB SUBLINGUAL PRN; -SODIUM CHLORIDE 0.9% 1,000 ML in EMPTY BAG 1 BAG IV ONE
[2019-07-03] MEDS ORDERED: HEPARIN SODIUM,PORCINE 10,000 UNIT/ML 1 ML VIAL ONE (07:34)
[2019-07-03] MEDS ORDERED: PROPOFOL 10 MG/ML 20 ML VIAL IV ONE (07:34)
[2019-07-03] MEDS ORDERED: ONDANSETRON 4 MG/2 ML VIAL ONE (07:34)
[2019-07-03] MEDS ORDERED: GLYCOPYRROLATE 0.2 MG/ML 2 ML VIAL ONE (07:34)
[2019-07-03] MEDS ORDERED: SUCCINYLCHOLINE CHLORIDE VIAL 200 MG/10 ML VIAL IV ONE (07:34)
[2019-07-03] MEDS ORDERED: ROCURONIUM BROMIDE 10 MG/ML 10 ML VIAL IV ONE (07:34)
[2019-07-03] MEDS ORDERED: fentaNYL (PF) 50 MCG/ML 2 ML AMP ONE (07:34)
[2019-07-03] MEDS ORDERED: PHENYLEPHRINE-0.9% NACL SYG 1 MG/10 ML SYRINGE ONE (07:34)
[2019-07-03] MEDS ORDERED: MIDAZOLAM 2 MG/2 ML VIAL ONE (07:34)
[2019-07-03] MEDS ORDERED: DEXAMETHASONE SOD PHOS (MDV) 100 MG/10 ML VIAL ONE (07:34)
[2019-07-03] MEDS ORDERED: FUROSEMIDE 10 MG/ML 2 ML VIAL ONE (07:34)
[2019-07-03] MEDS ORDERED: PROTAMINE SULFATE 10 MG/ML 5 ML VIAL IV ONE (07:34)
[2019-07-03] MEDS ORDERED: NEOSTIGMINE 1 MG/ML 10 ML VIAL ONE (07:34)
[2019-07-03] MEDS ORDERED: LIDOCAINE 1% INJ 10MG/ML (20 ML MDV) ONE (07:41)
--- NOTE | 2019-07-03 08:05 | P.HPCAR ---
History of Present Illness This is Dr. 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 fib ablation HPI Patient complains of palpitations and tiredness fatigue with a low energy level. Significant improvement when he was in sinus rhythm for about 2 days post cardioversion He recurred within 2 days after electrical cardioversion He denies any orthopnea PND chest discomfort loss of consciousness He denies any infections fever chills cough expectoration vital infection with bronchitis. Tract infection like symptoms or any skin infections He has had esophageal and gastric sleep surgery in the past ROS: No fever chills or rigors, no cough, phlegm or expectoration, no nausea, vomiting or diarrhea, no hematuria, dysuria, no musculoskeletal complaints, no strokes or seizures, no skin lesions. EXAMINATION: Afebrile 97.9F, pulse rate in the 50s normal respirations blood pressure 110/70 400 and his mercury Breath sounds are clear no rhonchi no crackles Heart sounds are irregular no murmurs audible Abdomen soft nontender Femoral pulses are well palpable No lower extremity edema No JVD REVIEW OF LABS, ECG & MEDICAL DATA Past history of gastric sleeve surgery Hypertension History of tobacco use Normal coronary arteries Electrical cardioversion Medications include xarelto diltiazem Physical Exam Vitals: Vital Signs Temp Pulse Resp BP Pulse Ox 07/03/19 07:07 97.9 F 58 L 20 110/74 97 Past Medical History Past Medical History: Atrial Fibrillation, Osteoarthritis (OA) History of Any Multi-Drug Resistant Organisms: None Reported Past Surgical History: Bariatric Surgery, Cardiac Ablation, Orthopedic Surgery Additional Past Surgical History / Comment(s): ABDOMINOPLASTY, EGD. BILAT SHOULDER SX (RT-X3) LT X1. BILAT KNEE SCOPES. Past Anesthesia/Blood Transfusion Reactions: No Reported Reaction Smoking Status: Former smoker - Past Family History Mother Family Medical History: No Reported History Physical Examination Vital Signs Temp Pulse Resp BP Pulse Ox 07/03/19 07:07 97.9 F 58 L 20 110/74 97 Results Current Medications Generic Name Dose Route Start Last Admin Trade Name Freq PRN Reason Stop Dose Admin Sodium Chloride 1,000 mls @ 20 mls/hr 07/03/19 06:14 Saline 0.9% IV .Q24H EVETTE
[2019-07-03] MEDS ORDERED: IV FLUID CONTINUATION 950 ML IV ONE (08:07)
[2019-07-03] MEDS ORDERED: LIDOCAINE 1% INJ 10MG/ML (20 ML MDV) SQ ONE (08:19)
[2019-07-03] MEDS ORDERED: HEPARIN SOD,PORK IN 0.45% NACL 25,000 UNIT in 0.45% NACL 1 250ML.BAG IV ONE (08:20)
[2019-07-03] MEDS ORDERED: LACTATED RINGERS 1,000 ML IV ONE (11:00)
[2019-07-03] MEDS ORDERED: HEPARIN SODIUM (1,000 UNIT/ML) 1,000 UNIT in SODIUM CHLORIDE 0.9% 1,000 ML IRRIGATION ONE (11:00)
[2019-07-03] MEDS ORDERED: IOPAMIDOL-370 100ML BTL INJ ONE (11:21)
[2019-07-03] MEDS ORDERED: HYDROcodone/APAP 5-325MG 1 EACH TAB PO PRN (12:31)
[2019-07-03] MEDS ORDERED: ACETAMINOPHEN IV (For NPO) 1,000 MG in EMPTY BAG 1 BAG IVPB ONE (12:31)
[2019-07-03] MEDS ORDERED: ACETAMINOPHEN TAB 325 MG TAB PO PRN (12:31)
[2019-07-03] MEDS ORDERED: RIVAROXABAN 10 MG TAB PO STA (12:36)
--- NOTE | 2019-07-03 13:50 | P.PCN ---
Preoperative Diagnosis: Diagnosis Atrial fibrillation, persistent, symptomatic, refractory to therapy Film Sorter: Dr. Diaz, butcher assistant: Dominga Dodson PA-C Result Successful pulmonary vein isolation of all veins using cryo-ablation Complete entrance block in all 4 veins confirmed by voltage mapping No evidence for phrenic nerve injury 3-D electro anatomic mapping with linear ablation along the anterior septum of the LA Linear ablation between the left atrial appendage is left pulmonary veins No evidence for clot in the left atrial appendage seen on intracardiac echo Esophageal deflection [YES ] Electrical cardioversion with a synchronized shock across the chest [YES / Procedure details Patient was brought to the EP lab in a fasting state. Written informed consent was obtained prior to the procedure. Procedure performed under general anesthesia After initial muscle relaxant use, muscle relaxants were not given thereafter in order to assess phrenic nerve during procedure. Patient prepped and draped as per protocol Full cryo-set up with standard preparation of the cryoablation tools done. Femoral Venous access obtained on the right and left groins Venous and arterial Sheaths placed. Diagnostic catheters for the high right atrium, phrenic nerve stimulation and pacing, His bundle, RV and coronary sinus placed Intracardiac echo catheter placed. Long sheath placed in the right atrium Left and right transseptal catheterization performed under intracardiac echo guidance. Intravenous heparin with aCT above 300 Later, catheter positioning and balloon positioning in the left atrium, under intracardiac echo guidance Diagnostic EP study Coronary sinus pacing and recording Baseline measurements AH interval 65 HV 28 QRS 103 QT 420 Transseptal catheterization performed RA pressure [17/7] LA pressure [22/13] Transseptal catheterization performed with standard sheath. The cryoablation sheath was then placed with an over the wire exchange without any acute complications. All 4 pulmonary veins were isolated in the following sequence: Left superior followed by left inferior followed by right superior followed by right inferior The cryo-ablation balloon was placed at the os of each vein 1.5 mL of IV dye was injected to confirm an occluded vein Goal during cryoablation was to achieve complete occlusion of the pulmonary vein, achieve -30 degrees C at 30 seconds and achieve -40 degrees C at 60 seconds and a time to effect of less than 60-90 seconds, . If not the balloon was repositioned to obtain this result After completion of Cryoblation with durations from 180-240 seconds, entrance block was confirmed with the Attain circular catheter in a roving fashion around the antrum of the pulmonary veins Phrenic nerve pacing was performed from the SVC, right innominate vein area and diaphragm voltage was monitored. Diaphragmatic contractions were also monitored manually for strength of contraction. Parameter goals for each cryo freeze Complete occlusion of the appropriate vein -30 degrees C by 30 seconds -40 degrees C by 60 seconds Minimum between minus 40-55 degrees C Thaw time greater than 10 seconds Balloon visualized by intracardiac echo The esophagus was intubated. Esophageal Temperature monitoring with a CIRCA catheter formed. Esophageal deflection for hypothermia of the esophagus below 30 degrees C Left superior pulmonary vein Complete isolation, entrance block Left inferior pulmonary vein Complete isolation, entrance block Right superior pulmonary vein, during phrenic nerve pacing Complete isolation, entrance block Right inferior pulmonary vein, during phrenic nerve pacing Complete isolation, entrance block At the end of the procedure the Achieve catheter was once again used to check for entrance block Phrenic nerve stimulation was performed to confirm diaphragmatic stimulation the end of the procedure Cine fluoroscopy was performed at the very end of the procedure to confirm movement of both diaphragms with inspiration and expiration 3-D anatomic mapping of left atrium All veins were completely isolated except for right superior Right superior vein completely isolated with radiofrequency ablation along the posterior antrum Linear ablation along the anterior septum Linear ablation along the ridge between the left atrial appendage and left sided veins Both of these lines Were connected to the PVI At the end of the procedure the patient was extubated Heparin was reversed Venous sheaths were removed and hemostasis assured Procedures performed (PVI - CRYO Ablation) Diagnostic EP study CS pacing and recording Left and right transseptal catheterization 3D mapping Intracardiac echocardiography Pulmonary vein isolation with transseptal and comprehensive EPS, [id number] Left atrial radiofrequency line Along the anterior septum+[id number] Linear ablation along the ridge, +[id number] Electrical cardioversion with a synchronized shock across the chest [id number]
--- NOTE | 2019-07-04 07:27 | P.DS ---
Providers Attending physician: Sami Diaz Primary care physician: [facility] Hospital Course: Patient is doing fairly well. He does have a sore throat but is not in any chest discomfort no dizziness lightheadedness or palpitations no orthopnea Today this morning both his groins of healed well is no swelling no hematoma no bruising. Yesterday the right groin did bleed a little bit but he apparently showing the nurse how well he could bend his hip and knee and didn't repeatedly. Following that the groin bled I have instructed him on the precautions for the next 2-3 days regarding groin management On examination his blood pressures 108/64 mmHg pulse rate is in the 70s afebrile 98.5F Sounds are clear no rhonchi no crackles Heart sounds S1 and S2 are normal no murmurs no gallops no rub Abdomen is soft Extremities warm no edema Both groins of healed well there is no hematoma no swelling no bruising Impression Persistent atrial fibrillation, symptomatic, failed medical treatment, Significantly dilated left atrium Reduced LV systolic function, mild Plan Patient has been taking Xarelto 10 mg by mouth daily for an unclear reason. I asked him to increase to 20 mg daily. Yesterday he did get 20 mg by mouth daily. There was no left atrial appendage thrombus noted All other medications continue to If in the future he has more atrial fibrillation would recommend a medication such as dofetilide if his LV function is still reduced OR flecainide if his LV function has normalized Plan - Discharge Summary Discharge Rx Participant: Yes New Discharge Prescriptions: New Rivaroxaban [Xarelto] 20 mg PO DAILY #90 tab Discontinued Rivaroxaban [Xarelto] 10 mg PO DAILY #11 tab No Action Diltiazem Cd [Cardizem CD] 120 mg PO DAILY Testosterone 60 mg TOPICAL DAILY Meloxicam 15 mg PO DAILY PRN PRN Reason: arthritis pain Discharge Medication List Diltiazem Cd [Cardizem CD] 120 mg PO DAILY 01/08/19 [History] Meloxicam 15 mg PO DAILY PRN 01/08/19 [History] Testosterone 60 mg TOPICAL DAILY 01/08/19 [History] Rivaroxaban [Xarelto] 20 mg PO DAILY #90 tab 07/03/19 [Rx] Follow up Appointment(s)/Referral(s): Ozzie Hinojosa MD [STAFF PHYSICIAN] - 1 Week (Follow Dr. Hinojosa/Nataly Blum within 1-2 weeks Please make sure the patient goes home on Zarontin to 20 mg by mouth daily and he has a one-month supply as well as a separate prescription for Xarelto 20 mg by mouth daily He should not take 10 mg by mouth daily of xarelto) Activity/Diet/Wound Care/Special Instructions: Post EP study - Ablation instructions 1. Keep access sites dry for 2 days. 2. No heavy lifting or straining for 2 days. 3. Avoid bending the hips repeatedly for 2 days. 4. You may go up and down stairs slowly Call if the following is noted 1. Bleeding, increasing swelling or pain at the access sites. 2. Increasing chest discomfort, especially upon taking a deep breath. 3. Increasing shortness of breath, at rest or with exertion. 4. Undue cough / phlegm 5. Difficulty or pain while swallowing. 6. Pain or change in color in the extremities. 7. Fever, chills, rigors. 8. Increasing headache or neurologic symptoms. 9. Dizziness, fainting, palpitations Increase Xarelto to 20 mg by mouth daily Patient needs a starter pack for 30 days He is a separate prescription for Xarelto
[2019-07-04 07:35] VITALS: RESP 16
[2019-07-04] MEDS ORDERED: DILTIAZEM CD 120 MG CAP.ER.24H PO SCH (09:00)
[2019-07-04] MEDS ORDERED: RIVAROXABAN 20 MG TAB PO SCH (09:00)
[2019-07-04 11:34] VITALS: BP 116/74; PULSE 70; TEMP 97.9
== END 2019-07-04 16:18 | disposition home or self-care (01) ==
LOC: CATHEP 06:16 → 1SOBS 12:25 → CATHEP 07-04 16:18
PROVIDERS: ATTEND Internal Medicine Clinical Cardiac Electrophysiology
DX: I48.1 Persistent atrial fibrillation (principal); I42.9 Cardiomyopathy, unspecified; I34.0 Nonrheumatic mitral (valve) insufficiency; M19.90 Unspecified osteoarthritis, unspecified site; I10 Essential (primary) hypertension; Z87.891 Personal history of nicotine dependence; Z91.040 Latex allergy status; Z79.01 Long term (current) use of anticoagulants; Z79.1 Long term (current) use of non-steroidal anti-inflammatories (NSAID); Z79.890 Hormone replacement therapy; Z79.899 Other long term (current) drug therapy
CPT/HCPCS: 85347; 92960; 93662; 93613; 93656; 93657; C1769 ×5; C1894 ×2; C1730 ×2; C1759; C1893; C1733; C1766; C1732; J2250; J0330; J2720; J1644 ×3; J1940; J2710; J2405; J2001; J3010; J1100; J2370; J2704; Q9967

== ENCOUNTER → 2019-08-20 | Outpatient (CLI) | payer BC ==
--- NOTE | 2019-08-20 12:08 | XR ---
EXAMINATION TYPE: XR lumbosacral spine min 4V DATE OF EXAM: 08/20/2019 CLINICAL HISTORY: M [age]., Low [age] pain. TECHNIQUE: Frontal, lateral, and oblique images of the lumbar spine are obtained. COMPARISON: None FINDINGS: There are 5 lumbar type vertebral bodies identified. The lumbar spine shows satisfactory alignment without evidence of acute fracture or dislocation. Vertebral body heights and disk space he ights are within normal limits. Mild multilevel facet arthropathy is seen small posterior projecting osteophyte is seen at L5-S1. Very small multilevel anterior osteophytes are present. The oblique hu ges appear within normal limits. The overlying bowel is nondilated. IMPRESSION: 1. No acute fracture or malalignment is seen in the lumbar spine. 2. Mild multilevel degenerative changes of the lumbar spine.
== END | disposition home or self-care (01) ==
LOC: RADXRMAIN 10:20
PROVIDERS: ATTEND Internal Medicine
DX: M47.816 Spondylosis without myelopathy or radiculopathy, lumbar region (principal)
CPT/HCPCS: 72110

== ENCOUNTER → 2019-09-05 | Outpatient (CLI) | payer BC ==
--- NOTE | 2019-09-05 21:06 | MR ---
EXAMINATION TYPE: MR lumbar spine wo con DATE OF EXAM: 09/05/2019 COMPARISON: Plain film 08/20/2019 HISTORY: LBP, left sciatica TECHNIQUE: Multiplanar, multisequence images of the lumbar spine were acquired. L1-L2: Normal disc appearance without desiccation. No herniation, protrusion or disc bulging. No ca nal stenosis is present. Foramina are patent bilaterally. L2-L3: Broad-based posterior disc bulge causes mild anterior mass effect on the thecal sac eccentric towards the left. No significant central stenosis or foraminal encroachment. L3-L4: Posterior disc bulge somewhat eccentric towards the left causes mild anterior mass effect on t he thecal sac. There is facet arthropathy with hypertrophy ligamentum flavum causing posterior latera l mass effect on the thecal sac. Circumferential disc bulge results in foraminal encroachment greater on the right. L4-L5: Posterior central disc herniation causes anterior mass effect on the thecal sac. Facet arthrop athy with hypertrophy ligamentum flavum causes a trefoil appearance of the thecal sac, circumferentia l extension endplate disc complex results in bilateral foraminal encroachment. There is moderate cent ral stenosis. L5-S1: Vacuum phenomenon present along the disc. Circumferential posterior disc bulge causes anterior mass effect on the thecal sac, there is likely contact with the proximal S1 nerve roots. Facet arthr opathy change is hypertrophic, no significant central stenosis. Circumferential extension of endplate disc complex extends to cause some foraminal encroachment. Lumbar segments are intact. No paraspinal masses are identified. Conus medullaris has a normal appe arance. Lumbar vertebral bodies show preserved height and alignment. There is accentuation of lumbar lordosis. There is multilevel spondylosis present. There is some endplate discogenic marrow signal ch anges present. Loss of disc height signal is present intervertebral levels especially L2-3, L3-4, L4- 5 and L5-S1. IMPRESSION:
== END | disposition home or self-care (01) ==
LOC: RADMRIMAIN 17:26
PROVIDERS: ATTEND Internal Medicine
DX: M54.32 Sciatica, left side (principal); M40.56 Lordosis, unspecified, lumbar region; M51.26 Other intervertebral disc displacement, lumbar region; M47.9 Spondylosis, unspecified
CPT/HCPCS: 72148

== ENCOUNTER → 2022-02-24 | Outpatient (CLI) | payer OTHER ==
[2022-02-24 09:51] LABS: Basophils % (A) 0 %; Eosinophils % (A) 1 %; HCT 46.6 % (39.0-53.0); HGB 14.8 gm/dL (13.0-17.5); Lymphocytes # (A) 1.4 k/uL (1.0-4.8); Lymphocytes % (A) 35 %; MCHC 31.9 g/dL (31.0-37.0); MCV 100.3 fL (80.0-100.0); Mean Platelet Volume 9.6; Monocytes # (A) 0.2 k/uL (0-1.0); Monocytes % (A) 4 %; Neutrophils # (A) 2.2 k/uL (1.3-7.7); Neutrophils % (A) 57 %; Platelet Count 138 k/uL (150-450); RBC 4.65 m/uL (4.30-5.90); RDW 11.9 % (11.5-15.5); WBC 3.8 k/uL (3.8-10.6)
[2022-02-24 15:06] LABS: Protein, Total 6.2 g/dL (6.2-8.2)
[2022-02-25 15:55] LABS: Albumin 3.92 g/dL (3.80-4.90); Gamma Globulin 0.79 g/dL (0.70-1.50)
== END | disposition home or self-care (01) ==
LOC: LABWHC1 09:13
PROVIDERS: ATTEND Internal Medicine
DX: D72.819 Decreased white blood cell count, unspecified (principal)
CPT/HCPCS: 36415; 84165; 85025

== ENCOUNTER 2022-06-14 07:30 | Inpatient (IN) | payer OTHER ==
[2022-06-14] MEDS ORDERED: DILTIAZEM DRIP BOLUS FROM BAG 1 MG SOLN IV ONE (07:53)
--- NOTE | 2022-06-14 07:55 | ED ---
General Adult HPI - General Chief complaint: Shortness of Breath Stated complaint: heart concerns Time Seen by Provider: 06/14/22 07:32 Source: patient, RN notes reviewed Mode of arrival: ambulatory Limitations: no limitations - History of Present Illness Initial comments: 56-year-old male presents emergency Department chief complaint of chest pressure, dyspnea. Patient states he has not felt well the last few weeks for a recent sees noticed he's had exertional dyspnea, palpitations and complaining of chest pressure. Patient does have a history A. fib on eliquis, metoprolol. Patient states his been noticing his heart rate has been in the 130s, blood pressure has been elevated. Patient states that he cannot lay flat at nighttime, he states he noticed with small exertion he's felt short of breath. Patient does admit that he's had cardioversion, cardiac ablation in the past. Patient denies any significant leg pain, leg swelling. - Related Data Home Medications Medication Instructions Recorded Confirmed Diltiazem Cd [Cardizem CD] 120 mg PO DAILY 01/08/19 06/26/19 Meloxicam 15 mg PO DAILY PRN 01/08/19 06/26/19 Testosterone [Axiron] 60 mg TOPICAL DAILY 01/08/19 06/26/19 Previous Rx's Medication Instructions Recorded Rivaroxaban [Xarelto] 20 mg PO DAILY #90 tab 07/03/19 Allergies Allergy/AdvReac Type Severity Reaction Status Date / Time Latex, Natural Rubber Allergy Rash/Hives Verified 06/14/22 07:34 milk AdvReac Diarrhea Verified 06/14/22 07:34 Milk Containing Products AdvReac Diarrhea Verified 06/14/22 07:34 Review of Systems ROS Statement: Those systems with pertinent positive or pertinent negative responses have been documented in the HPI. ROS Other: All systems not noted in ROS Statement are negative. Past Medical History Past Medical History: Atrial Fibrillation, Osteoarthritis (OA) History of Any Multi-Drug Resistant Organisms: None Reported Past Surgical History: Bariatric Surgery, Orthopedic Surgery Additional Past Surgical History / Comment(s): ADOMINOPLASTY, EGD. BILAT SHOULDER SX (RT-X3) LT X1. BILAT KNEE SCOPES. Past Anesthesia/Blood Transfusion Reactions: No Reported Reaction Past Psychological History: No Psychological Hx Reported Past Alcohol Use History: Occasional Past Drug Use History: None Reported - Past Family History Mother Family Medical History: No Reported History General Exam Limitations: no limitations General appearance: alert, in no apparent distress Head exam: Present: atraumatic, normocephalic, normal inspection Eye exam: Present: normal appearance, PERRL, EOMI. Absent: scleral icterus, conjunctival injection, periorbital swelling ENT exam: Present: normal exam, mucous membranes moist Neck exam: Present: normal inspection. Absent: tenderness, meningismus, lymphadenopathy Respiratory exam: Present: normal lung sounds bilaterally. Absent: respiratory distress, wheezes, rales, rhonchi, stridor Cardiovascular Exam: Present: tachycardia, irregular rhythm, normal heart sounds. Absent: regular rate, normal rhythm, systolic murmur, diastolic murmur, rubs, gallop, clicks GI/Abdominal exam: Present: soft, normal bowel sounds. Absent: distended, tenderness, guarding, rebound, rigid Extremities exam: Absent: pedal edema Neurological exam: Present: alert Skin exam: Present: warm, dry, intact, normal color. Absent: rash Course Vital Signs 06/14/22 06/14/22 06/14/22 07:31 08:11 08:30 Temperature 97.7 F Pulse Rate 72 92 81 Respiratory 22 18 18 Rate Blood Pressure 118/86 113/89 116/93 O2 Sat by Pulse 99 96 98 Oximetry 06/14/22 09:00 Temperature Pulse Rate 80 Respiratory 14 Rate Blood Pressure 116/93 O2 Sat by Pulse 96 Oximetry Medical Decision Making - Medical Decision Making 56 show male presented for chest pain, orthopnea Exertional dyspnea. Patient's found to be in A. fib which chronic patient did have a heart rate of 1 to 130s to 150s. Patient did respond after Cardizem bolus, Cardizem infusion. Patient's chest x-ray shows CHF type changes BNP is mildly elevated. Patient will be admitted CHF, A. fib RVR, chest pain - Lab Data Result diagrams: 06/14/22 07:49 06/14/22 07:49 Lab Results 06/14/22 06/14/22 06/14/22 Range/Units 07:49 07:49 07:49 WBC 4.1 (3.8-10.6) k/uL RBC 4.07 L (4.30-5.90) m/uL Hgb 13.2 (13.0-17.5) gm/dL Hct 40.8 (39.0-53.0) % MCV 100.2 H (80.0-100.0) fL MCH 32.3 (25.0-35.0) pg MCHC 32.3 (31.0-37.0) g/dL RDW 13.4 (11.5-15.5) % Plt Count 141 L (150-450) k/uL MPV 9.7 Neutrophils % 61 % Lymphocytes % 29 % Monocytes % 6 % Eosinophils % 2 % Basophils % 1 % Neutrophils # 2.5 (1.3-7.7) k/uL Lymphocytes # 1.2 (1.0-4.8) k/uL Monocytes # 0.2 (0-1.0) k/uL Eosinophils # 0.1 (0-0.7) k/uL Basophils # 0.0 (0-0.2) k/uL PT 12.6 H (9.0-12.0) sec INR 1.2 H (<1.2) APTT 31.5 H (22.0-30.0) sec Sodium 139 (137-145) mmol/L Potassium 4.6 (3.5-5.1) mmol/L Chloride 109 H (98-107) mmol/L Carbon Dioxide 24 (22-30) mmol/L Anion Gap 6 mmol/L BUN 15 (9-20) mg/dL Creatinine 0.77 (0.66-1.25) mg/dL Est GFR (CKD-EPI)AfAm >90 (>60 ml/min/1.73 sqM) Est GFR (CKD-EPI)NonAf >90 (>60 ml/min/1.73 sqM) Glucose 110 H (74-99) mg/dL Calcium 9.1 (8.4-10.2) mg/dL Magnesium 1.7 (1.6-2.3) mg/dL Total Bilirubin 0.7 (0.2-1.3) mg/dL AST 39 (17-59) U/L ALT 41 (4-49) U/L Alkaline Phosphatase 86 (38-126) U/L Troponin I (0.000-0.034) ng/mL NT-Pro-B Natriuret Pep pg/mL Total Protein 6.5 (6.3-8.2) g/dL Albumin 4.0 (3.5-5.0) g/dL Lipase 113 (23-300) U/L 06/14/22 06/14/22 Range/Units 07:49 07:49 WBC (3.8-10.6) k/uL RBC (4.30-5.90) m/uL Hgb (13.0-17.5) gm/dL Hct (39.0-53.0) % MCV (80.0-100.0) fL MCH (25.0-35.0) pg MCHC (31.0-37.0) g/dL RDW (11.5-15.5) % Plt Count (150-450) k/uL MPV Neutrophils % % Lymphocytes % % Monocytes % % Eosinophils % % Basophils % % Neutrophils # (1.3-7.7) k/uL Lymphocytes # (1.0-4.8) k/uL Monocytes # (0-1.0) k/uL Eosinophils # (0-0.7) k/uL Basophils # (0-0.2) k/uL PT (9.0-12.0) sec INR (<1.2) APTT (22.0-30.0) sec Sodium (137-145) mmol/L Potassium (3.5-5.1) mmol/L Chloride (98-107) mmol/L Carbon Dioxide (22-30) mmol/L Anion Gap mmol/L BUN (9-20) mg/dL Creatinine (0.66-1.25) mg/dL Est GFR (CKD-EPI)AfAm (>60 ml/min/1.73 sqM) Est GFR (CKD-EPI)NonAf (>60 ml/min/1.73 sqM) Glucose (74-99) mg/dL Calcium (8.4-10.2) mg/dL Magnesium (1.6-2.3) mg/dL Total Bilirubin (0.2-1.3) mg/dL AST (17-59) U/L ALT (4-49) U/L Alkaline Phosphatase (38-126) U/L Troponin I <0.012 (0.000-0.034) ng/mL NT-Pro-B Natriuret Pep 1440 pg/mL Total Protein (6.3-8.2) g/dL Albumin (3.5-5.0) g/dL Lipase (23-300) U/L Critical Care Time Critical Care Time: Yes Total Critical Care Time: 35 Disposition Clinical Impression: Pulmonary edema, Chest pain, Atrial fibrillation with RVR Disposition: ADMITTED IP TO THIS HOSP Condition: Fair Is patient prescribed a controlled substance at d/c from ED?: No Referrals: None,Stated [REFERRING] - 1-2 days Time of Disposition: 09:22
[2022-06-14] MEDS ORDERED: DILTIAZEM 125 MG in SODIUM CHLORIDE 0.9% 100 ML IV SCH (08:00)
[2022-06-14 08:15] LABS: Basophils % (A) 1 %; Eosinophils # (A) 0.1 k/uL (0-0.7); Eosinophils % (A) 2 %; HCT 40.8 % (39.0-53.0); HGB 13.2 gm/dL (13.0-17.5); Lymphocytes # (A) 1.2 k/uL (1.0-4.8); Lymphocytes % (A) 29 %; MCH 32.3 pg (25.0-35.0); MCHC 32.3 g/dL (31.0-37.0); MCV 100.2 fL (80.0-100.0); Mean Platelet Volume 9.7; Monocytes # (A) 0.2 k/uL (0-1.0); Monocytes % (A) 6 %; Neutrophils # (A) 2.5 k/uL (1.3-7.7); Neutrophils % (A) 61 %; Platelet Count 141 k/uL (150-450); RBC 4.07 m/uL (4.30-5.90); RDW 13.4 % (11.5-15.5); WBC 4.1 k/uL (3.8-10.6)
[2022-06-14 08:20] LABS: ALT 41 U/L (4-49); AST 39 U/L (17-59); African American GFR (CKD) >90 (>60 ml/min/1.73 sqM); Alkaline Phosphatase 86 U/L (38-126); Anion Gap 6 mmol/L; Blood Urea Nitrogen 15 mg/dL (9-20); Calcium 9.1 mg/dL (8.4-10.2); Carbon Dioxide 24 mmol/L (22-30); Chloride 109 mmol/L (98-107); Glucose 110 mg/dL (74-99); Lipase 113 U/L (23-300); Magnesium 1.7 mg/dL (1.6-2.3); Non-African American GFR(CKD) >90 (>60 ml/min/1.73 sqM); Potassium 4.6 mmol/L (3.5-5.1); Sodium 139 mmol/L (137-145); Total Bilirubin 0.7 mg/dL (0.2-1.3); Total Protein 6.5 g/dL (6.3-8.2)
[2022-06-14 08:26] LABS: INR 1.2 (<1.2); Partial Thromboplastin Time 31.5 sec (22.0-30.0); Prothrombin Time 12.6 sec (9.0-12.0)
--- NOTE | 2022-06-14 08:29 | XR ---
EXAMINATION TYPE: XR chest 2V DATE OF EXAM: 06/14/2022 COMPARISON: NONE HISTORY: Chest pain. TECHNIQUE: Frontal and lateral views of the chest are obtained. FINDINGS: Increased linear markings bilaterally . The cardiac silhouette size is mildly enlarged. Elvie pect tiny bilateral pleural effusions on lateral x-ray. No pneumothorax seen. Bridging osteophytes in thoracic spine noted. IMPRESSION: Possible CHF exacerbation as there is mild cardiomegaly with tiny bilateral pleural eff usions and mild interstitial edema suspected. Correlate clinically.
[2022-06-14] MEDS ORDERED: NITROGLYCERIN SL TABS 0.4 MG TAB SUBLINGUAL PRN (09:23)
[2022-06-14] MEDS ORDERED: FUROSEMIDE 10 MG/ML 4 ML VIAL IV STA (09:26)
--- NOTE | 2022-06-14 10:24 | P.HPIM ---
History of Present Illness H&P Date: 06/14/22 History of Presenting Illness: Patient is a very pleasant 56-year-old male with a past medical history of hypertension, hyperlipidemia, atrial fibrillation (status post cardioversion and cardiac ablation) on anticoagulation with Xarelto, and bariatric sleeve in 2019. Patient presented to the emergency department with a chief complaint of chest pressure accompanied by mild dyspnea. Patient reports off-and-on for the past few weeks he has noticed that he has been experiencing some exertional dyspnea, orthopnea, paroxysmal nocturnal dyspnea and episodic palpitations. Patient reports again experiencing these episodes while at rest this morning accompanied by significant chest pressure and he knew he needed to come to the emergency department for evaluation. Patient denies having any headache, lightheadedness, dizziness, fevers, chills, diaphoresis, abdominal pain, nausea, vomiting, or experiencing any numbness/tingling/weakness/swelling in his extremities. Upon arrival to the emergency department patient was found to be in A. fib with RVR r eportedly with rate in 130s. Patient was given Cardizem bolus and started on Cardizem infusion. EKG was completed revealing atrial fibrillation with RVR to 103 bpm. Chest x-ray revealing concerns of CHF exacerbation with mild cardiomegaly and bilateral pleural effusions and mild interstitial edema. CBC revealing mild thrombocytopenia with platelet count of 141 otherwise normal findings. CMP was unremarkable. Troponin negative at less than 0.012. ProBNP was elevated at 1440. Patient was given 1 dose of Lasix and admitted under our services with consultation to cardiology. Review of systems: Pertinent positives and negatives as discussed in HPI, a complete review of systems was performed and all other systems are negative. Physical exam: Vital signs reviewed and stable. General: Nontoxic, no distress and appears stated age. Derm: Skin warm and dry, normal coloration for ethnicity. Head: Atraumatic, normocephalic and symmetric. Eyes: EOMs intact, no lid lag, and anicteric sclera Mouth: no lip lesions, mucus membranes moist Cardiovascular: Irregularly irregular with normal S1S2, no murmur, positive posterior tibial pulses bilaterally, and cap refill < 2 seconds. Lungs: Respirations even, regular, and unlabored on room air. Lungs CTA bilaterally, no rhonchi, no rales, no wheezing, and no accessory muscle usage. Abdominal: soft, nontender to palpation, no guarding, no appreciable organomegaly Ext: ROM intact. No gross muscle atrophy, no edema, no contractures Neuro: Speech clear, face symmetrical and CN II-XII grossly intact with no noted focal neuro deficits Psych: Alert and oriented to person, place, time, and situation. Appropriate and pleasant affect. Assessment and Plan of Care: Atrial fibrillation with RVR Acute Congestive heart failure, unknown type pending echocardiogram result Chest pressure likely secondary to above Paroxysmal nocturnal dyspnea likely secondary to above Hypertension Hyperlipidemia -Continue anticoagulation with Xarelto -Cardiology consult, appreciate further recommendations -Continue Cardizem infusion until rate is controlled and resume daily medication regimen with metoprolol succinate 50 mg -Telemetry monitoring -Trend troponins -ProBNP 1440 -Daily weights -Close monitoring of I's and O's -Cardiac diet -Lasix 40 mg IVP daily -Continued close monitoring of electrolytes while diuresing. The patient is admitted with an anticipated greater than than 2 midnight stay for evaluation of chest pain, A. fib RVR. CODE STATUS: Full code DVT prophylaxis: Xarelto Discussed with: Patient and RN Anticipated discharge date: Clinical course to determine Anticipated discharge place: Home A total of 35 minutes was spent on the care of this complex patient more than 50% of the time was spent in counseling and care coordination. I reviewed the documentation as provided by the SAMUEL above, who is the original author of this note. I agree with the documented assessment and plan, with the following changes: none Past Medical History Past Medical History: Atrial Fibrillation, Osteoarthritis (OA) History of Any Multi-Drug Resistant Organisms: None Reported Past Surgical History: Bariatric Surgery, Orthopedic Surgery Additional Past Surgical History / Comment(s): ADOMINOPLASTY, EGD. BILAT SHOULDER SX (RT-X3) LT X1. BILAT KNEE SCOPES. Past Anesthesia/Blood Transfusion Reactions: No Reported Reaction Past Psychological History: No Psychological Hx Reported Past Alcohol Use History: Occasional Past Drug Use History: None Reported - Past Family History Mother Family Medical History: No Reported History Father Family Medical History: Dementia, Hypertension Sister(s) Family Medical History: Hypertension Medications and Allergies Home Medications Medication Instructions Recorded Confirmed Type Rivaroxaban [Xarelto] 20 mg PO DAILY #90 tab 07/03/19 06/14/22 Rx lisinopriL 2.5 mg PO DAILY 06/14/22 06/14/22 History Furosemide [Lasix] 20 mg PO DAILY #90 tab 06/16/22 Rx Metoprolol Succinate (ER) [Toprol 100 mg PO DAILY #60 tab 06/16/22 Rx XL] Spironolactone [Aldactone] 25 mg PO DAILY #90 tab 06/16/22 Rx Allergies Allergy/AdvReac Type Severity Reaction Status Date / Time Latex, Natural Rubber Allergy Rash/Hives Verified 06/14/22 09:24 milk AdvReac Diarrhea Verified 06/14/22 09:24 Milk Containing Products AdvReac Diarrhea Verified 06/14/22 09:24 Physical Exam Vitals: Vital Signs Temp Pulse Resp BP Pulse Ox 06/14/22 09:30 68 14 124/86 97 06/14/22 09:00 80 14 116/93 96 06/14/22 08:30 81 18 116/93 98 06/14/22 08:11 92 18 113/89 96 06/14/22 07:31 97.7 F 72 22 118/86 99 Intake and Output 06/13/22 06/14/22 06/14/22 22:59 06:59 14:59 Intake Total 6.083 Balance 6.083 Intake: Intake, IV Titration 6.083 Amount Diltiazem 125 mg In 6.083 Sodium Chloride 0.9% 100 ml @ 5 MG/HR 5 mls/hr IV .Q24H [facility] Rx#:[id number] Other: Weight 122.47 kg Results CBC & Chem 7: 06/16/22 08:40 06/16/22 08:40 Labs: Abnormal Lab Results - Last 24 Hours (Table) 06/14/22 06/14/22 06/14/22 Range/Units 07:49 07:49 07:49 RBC 4.07 L (4.30-5.90) m/uL MCV 100.2 H (80.0-100.0) fL Plt Count 141 L (150-450) k/uL PT 12.6 H (9.0-12.0) sec INR 1.2 H (<1.2) APTT 31.5 H (22.0-30.0) sec Chloride 109 H (98-107) mmol/L Glucose 110 H (74-99) mg/dL
--- NOTE | 2022-06-14 13:46 | CA ---
Transthoracic Echo Report Name: Howard Hook Age: 56 Gender: M : 1965 Exam Date: 06/14/2022 10:27 Exam Location: [place] [facility] Ht (in): 72 Wt (lb): 270 Ordering Physician: Kane Granado Attending/Referring Phys: [id number], Loy Pallet Stone Positioner Liset Rodriguez, FRAN Procedure CPT: Indications: chest pain, pulmonary edema Cardiac Hx: Technical Quality: Good Contrast 1: Total Dose (mL): Contrast 2: Total Dose (mL): MEASUREMENTS (Male / Female) Normal Values 2D ECHO LV Diastolic Diameter PLAX 5.5 cm 4.2 - 5.9 / 3.9 - 5.3 cm LV Systolic Diameter PLAX 5.1 cm IVS Diastolic Thickness 1.6 cm 0.6 - 1.0 / 0.6 - 0.9 cm LVPW Diastolic Thickness 1.5 cm 0.6 - 1.0 / 0.6 - 0.9 cm LV Relative Wall Thickness 0.6 RV Internal Dim ED PLAX 3.6 cm LA Systolic Diameter LX 4.9 cm 3.0 - 4.0 / 2.7 - 3.8 cm LA Volume 90.3 cm??? 18 - 58 / 22 - 52 cm??? M-MODE Aortic Root Diameter MM 3.3 cm MV E Point Septal Separation 1.1 cm AV Cusp Separation MM 2.0 cm DOPPLER AV Peak Velocity 120.2 cm/s AV Peak Gradient 5.8 mmHg AI Peak Velocity 412.7 cm/s AI Peak Gradient 68.1 mmHg AI Pressure Half Time 633.8 ms MV Area PHT 6.3 cm??? MV Deceleration Time 163.6 ms TR Peak Velocity 241.4 cm/s TR Peak Gradient 23.3 mmHg Right Ventricular Systolic Press 27.6 mmHg FINDINGS Left Ventricle Left ventricular ejection fraction is estimated at <20 %. Left ventricular cavity size normal. Moderate concentric left ventricular hypertrophy. Severely reduced global left ventricular systolic function. Right Ventricle Mild right ventricular dilatation. Right ventricular systolic pressure within normal limits. Right Atrium Normal right atrial size. Left Atrium Moderately increased left atrial diameter. Severely increased left atrial volume. Mildly increased left atrial area. No evidence for an atrial septal defect. Mitral Valve Mitral valve thickened. Trace to mild mitral regurgitation. Aortic Valve Trileaflet aortic valve. Mild aortic regurgitation. Tricuspid Valve Mild tricuspid regurgitation. Pulmonic Valve Trace to mild pulmonic regurgitation. Pericardium Normal pericardium. No pericardial effusion. Aorta Normal size aortic root and proximal ascending aorta. CONCLUSIONS Severe LV dysfunction mildly dilated LV Moderately enlarged left atrium Previewed by: Dr. Sami Diaz MD (Electronically Signed) Final Date: 14 June 2022 13:45
[2022-06-15] MEDS: METOPROLOL SUCCINATE (ER) 50 MG TAB.ER.24H PO SCH (08:26)
[2022-06-15] MEDS: RIVAROXABAN 20 MG TAB PO SCH (08:26)
[2022-06-15] MEDS ORDERED: ASPIRIN 81 MG PO SCH (09:00)
[2022-06-15] MEDS ORDERED: FUROSEMIDE 10 MG/ML 4 ML VIAL IV SCH (09:00)
--- NOTE | 2022-06-15 09:49 | P.CRDCN ---
History of Present Illness History of present illness: HISTORY OF PRESENTING ILLNESS This is a pleasant 56-year-old male past medical history significant for persistent atrial fibrillation on Xarelto, nonischemic cardiomyopathy with previous EF 30%, severe mitral regurgitation, moderate tricuspid regurgitation. He follows in the office with Dr. Hinojosa We have been asked to see in consultation for Atrial fibrillation. Patient presents emergency department with worsening shortness of breath, bilateral lower extremity edema, symptoms of orthopnea, PND and palpitations. Patient states he also noted that his blood pressure a few months ago was also low SBP 80s/60s. He stopped all his anti-hypertensive medication. He was compliant with his Xarelto. He denies any chest pain, lightheadedness, dizziness, syncope or near syncope. Patient does not have a history of CAD, [place], stroke or diabetes. He denies any tobacco use. DIAGNOSTICS * EKG reveals atrial fibrillation, heart rate 103 * Echocardiogram revealed an EF less than 20%, moderate concentric LVH, mild right ventricular dilatation, RVSP of 27 mmHg, severely increased left atrial volume, mild aortic regurgitation * Telemetry tracings indicate atrial fibrillation with controlled ventricular rates. * Chest xray possible congestive heart failure, mild cardiomegaly, tiny bilateral pleural effusions. * Laboratory reviewed, troponin negative 3, WBC 4.1, hemoglobin 13.2, platelets 141, sodium 139, potassium 4.6, BUN 15, Serum creatinine 0.7, magnesium 1.7, pro BNP 1440. * Current home cardiac medications include Xarelto 20 mg daily, metoprolol succinate 50 mg daily, lisinopril 2.5 mg daily * Cardiac catheterization 02/2019 revealed normal coronary arteries * Echocardiogram 01/2020 revealed EF 30%, mild aortic regurgitation, severe mitral regurgitation, moderate tricuspid regurgitation REVIEW OF SYSTEMS At the time of my exam: CONSTITUTIONAL: Denies fever or chills. CARDIOVASCULAR: Denies chest pain.Reports shortness of breath, orthopnea, PND palpitations. RESPIRATORY: Denies cough. GASTROINTESTINAL: Denies abdominal pain, diarrhea, constipation, nausea or vomiting. MUSCULOSKELETAL: Denies myalgias. NEUROLOGIC: Denies numbness, tingling, headacbe or weakness. ENDOCRINE: Denies fatigue, weight change, polydipsia or polyurina. GENITOURINARY: Denies burning, hematuria or urgency with micturation. HEMATOLOGIC: Denies history of anemia or bleeding. PHYSICAL EXAMINATION Blood pressure 110/82, heart rate 91, afebrile, oxygen saturations 97% room air CONSTITUTIONAL: No apparent distress. HEENT: Head is normocephalic. Pupils are equal, round. Sclerae anicteric. Mucous membranes of the mouth are moist. No JVD. No carotid bruit. CHEST EXAMINATION: Lungs are clear to auscultation. No chest wall tenderness is noted on palpation or with deep breathing. HEART EXAMINATION: Irregular rate and rhythm. S1, S2 heard. Systolic ejection murmur at apex. No gallops or rub. ABDOMEN: Soft, nontender. Positive bowel sounds. EXTREMITIES: 2+ peripheral pulses, no lower extremity edema and no calf tenderness. NEUROLOGIC EXAMINATION: Patient is awake, alert and oriented x3. ASSESSMENT Persistent atrial fibrillation, mild RVR, on Xarelto Nonischemic cardiomyopathy Acute on chronic heart failure with reduced ejection fraction <20% Non-compliance with beta aurora and ACEI medication PLAN Stop IV Lasix, Transition to PO Lasix Start spironolactone 25mg daily Continue metoprolol succinate and Lisinopril Optimize heart failure regimen, patient would benefit from Jardiance and Entresto. Secondary to holding lisinopril for 48 hours prior to Entresto, we will consider this medications as an outpatient Continue Xarelto anticoagulation Hopefully discharge in the next 24 hours Further recommendations based on clinical course Nurse practitioner note has been reviewed by physician. Signing provider agrees with the documented findings, assessment, and plan of care. Past Medical History Past Medical History: Atrial Fibrillation, Osteoarthritis (OA) History of Any Multi-Drug Resistant Organisms: None Reported Past Surgical History: Bariatric Surgery, Orthopedic Surgery Additional Past Surgical History / Comment(s): ADOMINOPLASTY, EGD. BILAT SHOUL JOS SX (RT-X3) LT X1. BILAT KNEE SCOPES. Past Anesthesia/Blood Transfusion Reactions: No Reported Reaction Past Psychological History: No Psychological Hx Reported Past Alcohol Use History: Occasional Past Drug Use History: None Reported - Past Family History Mother Family Medical History: No Reported History Father Family Medical History: Dementia, Hypertension Sister(s) Family Medical History: Hypertension Medications and Allergies Home Medications Medication Instructions Recorded Confirmed Type Rivaroxaban [Xarelto] 20 mg PO DAILY #90 tab 07/03/19 06/14/22 Rx Metoprolol Succinate (ER) [Toprol 50 mg PO DAILY 06/14/22 06/14/22 History Xl] lisinopriL 2.5 mg PO DAILY 06/14/22 06/14/22 History Allergies Allergy/AdvReac Type Severity Reaction Status Date / Time Latex, Natural Rubber Allergy Rash/Hives Verified 06/14/22 09:24 milk AdvReac Diarrhea Verified 06/14/22 09:24 Milk Containing Products AdvReac Diarrhea Verified 06/14/22 09:24 Physical Exam Vitals: Vital Signs Temp Pulse Resp BP Pulse Ox 06/14/22 13:00 118 H 12 104/73 95 06/14/22 12:00 73 20 119/82 98 06/14/22 11:00 71 14 114/92 98 06/14/22 10:00 66 14 117/84 98 06/14/22 09:30 68 14 124/86 97 06/14/22 09:00 80 14 116/93 96 06/14/22 08:30 81 18 116/93 98 06/14/22 08:11 92 18 113/89 96 06/14/22 07:31 97.7 F 72 22 118/86 99 Intake and Output 06/13/22 06/14/22 06/14/22 22:59 06:59 14:59 Intake Total 6.083 Balance 6.083 Intake: Intake, IV Titration 6.083 Amount Diltiazem 125 mg In 6.083 Sodium Chloride 0.9% 100 ml @ 5 MG/HR 5 mls/hr IV .Q24H [facility] Rx#:[id number] Other: Weight 122.47 kg Results 06/14/22 07:49 06/14/22 07:49 Cardiac Enzymes 06/14/22 06/14/22 06/14/22 Range/Units 07:49 07:49 11:25 AST 39 (17-59) U/L Troponin I <0.012 <0.012 (0.000-0.034) ng/mL Coagulation 06/14/22 Range/Units 07:49 PT 12.6 H (9.0-12.0) sec APTT 31.5 H (22.0-30.0) sec CBC 06/14/22 Range/Units 07:49 WBC 4.1 (3.8-10.6) k/uL RBC 4.07 L (4.30-5.90) m/uL Hgb 13.2 (13.0-17.5) gm/dL Hct 40.8 (39.0-53.0) % Plt Count 141 L (150-450) k/uL Comprehensive Metabolic Panel 06/14/22 Range/Units 07:49 Sodium 139 (137-145) mmol/L Potassium 4.6 (3.5-5.1) mmol/L Chloride 109 H (98-107) mmol/L Carbon Dioxide 24 (22-30) mmol/L BUN 15 (9-20) mg/dL Creatinine 0.77 (0.66-1.25) mg/dL Glucose 110 H (74-99) mg/dL Calcium 9.1 (8.4-10.2) mg/dL AST 39 (17-59) U/L ALT 41 (4-49) U/L Alkaline Phosphatase 86 (38-126) U/L Total Protein 6.5 (6.3-8.2) g/dL Albumin 4.0 (3.5-5.0) g/dL Current Medications Generic Name Dose Route Start Last Admin Trade Name Freq PRN Reason Stop Dose Admin Diltiazem HCl 125 mg/ Sodium 125 mls @ 5 mls/hr 06/14/22 08:00 06/14/22 09:23 Chloride IV 0 mg/hr .Q24H [facility] 0 mls/hr Infusion 5 MG/HR Lisinopril 2.5 mg 06/15/22 09:00 Lisinopril 2.5 Mg Tab PO DAILY [facility] Metoprolol Succinate 50 mg 06/15/22 09:00 Metoprolol Succinate (Er) 50 Mg Tab.Er.24h PO DAILY [facility] Nitroglycerin 0.4 mg 06/14/22 09:23 Nitroglycerin Sl Tabs 0.4 Mg Tab SUBLINGUAL Q5M PRN Chest Pain Rivaroxaban 20 mg 06/15/22 09:00 Rivaroxaban 20 Mg Tab PO DAILY [facility] Protocol Intake and Output 06/13/22 06/14/22 06/14/22 22:59 06:59 14:59 Intake Total 6.083 Balance 6.083 Intake: Intake, IV Titration 6.083 Amount Diltiazem 125 mg In 6.083 Sodium Chloride 0.9% 100 ml @ 5 MG/HR 5 mls/hr IV .Q24H [facility] Rx#:[id number] Other: Weight 122.47 kg Patient Weight 06/15/22 06:59 Weight 122.47 kg 06/14/22 07:49 06/14/22 07:49
[2022-06-15] MEDS: SPIRONOLACTONE 25 MG TAB PO SCH (09:56)
--- NOTE | 2022-06-15 13:55 | P.PN ---
Subjective Progress Note Date: 06/15/22 History of Presenting Illness: Patient is a very pleasant 56-year-old male with a past medical history of hypertension, hyperlipidemia, atrial fibrillation (status post cardioversion and cardiac ablation) on anticoagulation with Xarelto, and bariatric sleeve in 2019. Patient presented to the emergency department with a chief complaint of chest pressure accompanied by mild dyspnea. Patient reports off-and-on for the past few weeks he has noticed that he has been experiencing some exertional dyspnea, orthopnea, paroxysmal nocturnal dyspnea and episodic palpitations. Patient reports again experiencing these episodes while at rest this morning accompanied by significant chest pressure and he knew he needed to come to the emergency department for evaluation. Patient denies having any headache, lightheadedness, dizziness, fevers, chills, diaphoresis, abdominal pain, nausea, vomiting, or experiencing any numbness/tingling/weakness/swelling in his extremities. Upon arrival to the emergency department patient was found to be in A. fib with RVR reportedly with rate in 130s. Patient was given Cardizem bolus and started on Cardizem infusion. EKG was completed revealing atrial fibrillation with RVR to 103 bpm. Chest x-ray revealing concerns of CHF exacerbation with mild cardiomegaly and bilateral pleural effusions and mild interstitial edema. CBC revealing mild thrombocytopenia with platelet count of 141 otherwise normal findings. CMP was unremarkable. Troponin negative at less than 0.012. ProBNP was elevated at 1440. Patient was given 1 dose of Lasix and admitted under our services with consultation to cardiology. Monitored overnight. Troponins were trended all negative at less than 0.0123 draws. Echocardiogram was completed revealing a severely impaired EF less than 20%. Cardiology evaluated. Decreasing Lasix to 20 mg daily and adding on Aldactone 25 mg daily. Physical exam: Vital signs reviewed and stable. General: Nontoxic, no distress and appears stated age. Derm: Skin warm and dry, normal coloration for ethnicity. Head: Atraumatic, normocephalic and symmetric. Eyes: EOMs intact, no lid lag, and anicteric sclera Mouth: no lip lesions, mucus membranes moist Cardiovascular: Irregularly irregular with normal S1S2, no murmur, positive posterior tibial pulses bilaterally, and cap refill < 2 seconds. Lungs: Respirations even, regular, and unlabored on room air. Lungs CTA bilaterally, no rhonchi, no rales, no wheezing, and no accessory muscle usage. Abdominal: soft, nontender to palpation, no guarding, no appreciable organomegaly Ext: ROM intact. No gross muscle atrophy, no edema, no contractures Neuro: Speech clear, face symmetrical and CN II-XII grossly intact with no noted focal neuro deficits Psych: Alert and oriented to person, place, time, and situation. Appropriate and pleasant affect. Assessment and Plan of Care: Atrial fibrillation with RVR Acute systolic Congestive heart failure with EF less than 20% Chest pressure likely secondary to above Paroxysmal nocturnal dyspnea likely secondary to above Hypertension Hyperlipidemia -Continue anticoagulation with Xarelto -Cardiology consult, appreciate further recommendations -Echocardiogram revealing severely impaired EF less than 20%. -Telemetry monitoring -Troponins negative -ProBNP 1440 -Patient started on Lasix 20 mg daily and Aldactone 25 mg daily and to continue with metoprolol 50 mg daily. -Daily weights -Close monitoring of I's and O's -Cardiac diet CODE STATUS: Full code DVT prophylaxis: Xarelto Discussed with: Patient and RN Anticipated discharge date: Clinical course to determine Anticipated discharge place: Home A total of 36 minutes was spent on the care of this complex patient more than 50% of the time was spent in counseling and care coordination. I reviewed the documentation as provided by the SAMUEL above, who is the original author of this note. I agree with the documented assessment and plan, with the following changes: none Objective - Vital Signs Vital signs: Vital Signs Temp 97.9 F 06/14/22 19:40 Pulse 82 06/15/22 04:05 Resp 18 06/15/22 04:05 BP 116/80 06/15/22 04:05 Pulse Ox 96 06/15/22 04:05 FiO2 Intake & Output 06/14/22 06/15/22 06/15/22 18:59 06:59 18:59 Intake Total 786.083 Balance 786.083 Weight 118.7 kg Intake: Intake, IV Titration 6.083 Amount Diltiazem 125 mg In 6.083 Sodium Chloride 0.9% 100 ml @ 5 MG/HR 5 mls/hr IV .Q24H [facility] Rx#:[id number] Oral 780 Other: Voiding Method Toilet Toilet - Labs CBC & Chem 7: 06/16/22 08:40 06/16/22 08:40 Labs: Abnormal Lab Results - Last 24 Hours (Table) 06/14/22 06/14/22 06/14/22 Range/Units 07:49 07:49 07:49 RBC 4.07 L (4.30-5.90) m/uL MCV 100.2 H (80.0-100.0) fL Plt Count 141 L (150-450) k/uL PT 12.6 H (9.0-12.0) sec INR 1.2 H (<1.2) APTT 31.5 H (22.0-30.0) sec Chloride 109 H (98-107) mmol/L Glucose 110 H (74-99) mg/dL
[2022-06-15 14:49] LABS: Chol/HDL Ratio 3.13 Ratio; LDL Cholesterol,Calculated 105.3 mg/dL (0.0-131.0)
[2022-06-15] MEDS ORDERED: HYDROcodone/APAP 5-325MG 1 EACH TAB PO PRN (15:31)
[2022-06-15] MEDS ORDERED: ACETAMINOPHEN TAB 325 MG TAB PO PRN (15:31)
[2022-06-15 23:51] VITALS: TEMP 97.5
[2022-06-16 07:51] VITALS: RESP 16
[2022-06-16] MEDS: SPIRONOLACTONE 25 MG TAB PO SCH (08:01)
[2022-06-16] MEDS: METOPROLOL SUCCINATE (ER) 50 MG TAB.ER.24H PO SCH (08:01)
[2022-06-16] MEDS: RIVAROXABAN 20 MG TAB PO SCH (08:01)
[2022-06-16] MEDS ORDERED: FUROSEMIDE 20 MG TAB PO SCH (09:00)
[2022-06-16 09:30] LABS: HCT 44.9 % (39.0-53.0); HGB 14.6 gm/dL (13.0-17.5); MCH 32.8 pg (25.0-35.0); MCHC 32.5 g/dL (31.0-37.0); Macrocytosis Slight; Mean Platelet Volume 9.7; Platelet Count 152 k/uL (150-450); RBC 4.45 m/uL (4.30-5.90); RDW 13.2 % (11.5-15.5); WBC 4.2 k/uL (3.8-10.6)
[2022-06-16 09:47] LABS: ALT 35 U/L (4-49); AST 33 U/L (17-59); African American GFR (CKD) >90 (>60 ml/min/1.73 sqM); Albumin 4.6 g/dL (3.5-5.0); Alkaline Phosphatase 90 U/L (38-126); Anion Gap 9 mmol/L; Blood Urea Nitrogen 20 mg/dL (9-20); Calcium 9.8 mg/dL (8.4-10.2); Carbon Dioxide 25 mmol/L (22-30); Chloride 104 mmol/L (98-107); Glucose 99 mg/dL (74-99); Magnesium 1.9 mg/dL (1.6-2.3); Non-African American GFR(CKD) >90 (>60 ml/min/1.73 sqM); Potassium 4.6 mmol/L (3.5-5.1); Sodium 138 mmol/L (137-145); Total Bilirubin 0.8 mg/dL (0.2-1.3); Total Protein 7.2 g/dL (6.3-8.2)
--- NOTE | 2022-06-16 11:49 | P.PN ---
Subjective This is a pleasant 56-year-old male past medical history significant for persistent atrial fibrillation on Xarelto, nonischemic cardiomyopathy with p revious EF 30%, severe mitral regurgitation, moderate tricuspid regurgitation. He follows in the office with Dr. Hinojosa We have been asked to see in consultation for Atrial fibrillation. Patient presents emergency department with worsening shortness of breath, bilateral lower extremity edema, symptoms of orthopnea, PND and palpitations. Patient states he also noted that his blood pressure a few mo nths ago was also low SBP 80s/60s. He stopped all his anti-hypertensive medication. He was compliant with his Xarelto. He denies any chest pain, lightheadedness, dizziness, syncope or near syncope. Patient does not have a history of CAD, [place], stroke or diabetes. He denies any tobacco use. DIAGNOSTICS * EKG reveals atrial fibrillation, heart rate 103 * Echocardiogram revealed an EF less than 20%, moderate concentric LVH, mild right ventricular dilatation, RVSP of 27 mmHg, severely increased left atrial volume, mild aortic regurgitation * Telemetry tracings indicate atrial fibrillation with controlled ventricular rates. * Chest xray possible congestive heart failure, mild cardiomegaly, tiny igor ateral pleural effusions. * Laboratory reviewed, troponin negative 3, WBC 4.1, hemoglobin 13.2, platelets 141, sodium 139, potassium 4.6, BUN 15, Serum creatinine 0.7, magnesium 1.7, pro BNP 1440. * Current home cardiac medications include Xarelto 20 mg daily, metoprolol succinate 50 mg daily, lisinopril 2.5 mg daily * Cardiac catheterization 02/2019 revealed normal coronary arteries * Echocardiogram 01/2020 revealed EF 30%, mild aortic regurgitation, severe mitral regurgitation, moderate tricuspid regurgitation 06/16/2022 Patient seen and examined at bedside, no acute distress. Slightly tachycardic this morning in atrial fibrillation. BP stable. He is feeling well, no chest pain or shortness of breath. PHYSICAL EXAMINATION Vitals reviewed CONSTITUTIONAL: No apparent distress. HEENT: Neck Supple. No JVD. CHEST EXAMINATION: Lungs are clear to auscultation. No chest wall tenderness is noted on palpation or with deep breathing. HEART EXAMINATION: Irregular rate and rhythm. S1, S2 heard. Systolic ejection murmur at apex. No gallops or rub. ABDOMEN: Soft, nontender. Positive bowel sounds. EXTREMITIES: 2+ peripheral pulses, no lower extremity edema and no calf tenderness. NEUROLOGIC EXAMINATION: Patient is awake, alert and oriented x3. ASSESSMENT Persistent atrial fibrillation, mild RVR, on Xarelto Nonischemic cardiomyopathy Acute on chronic heart failure with reduced ejection fraction <20% Non-compliance with beta aurora and ACEI medication PLAN From a cardiology perspective, patient is stable to be discharged home Continue PO Lasix 20mg daily and spironolactone 25mg daily Continue metoprolol succinate and Lisinopril Optimize heart failure regimen, patient would benefit from Jardiance and Entresto. Secondary to holding lisinopril for 48 hours prior to Entresto, we will consider this medications as an outpatient Continue Xarelto anticoagulation Follow up outpatient with Dr. Hinojosa in 1-2 weeks. Nurse practitioner note has been reviewed by physician. Signing provider agrees with the documented findings, assessment, and plan of care. Objective - Vital Signs Vital signs: Vital Signs Temp 97.5 F L 06/15/22 22:45 Pulse 142 H 06/16/22 07:50 Resp 16 06/16/22 07:50 BP 126/85 06/16/22 07:50 Pulse Ox 97 06/16/22 07:50 FiO2 Intake & Output 06/15/22 06/16/22 06/16/22 18:59 06:59 18:59 Intake Total 420 Balance 420 Weight 115 kg Intake: Oral 420 Other: Voiding Method Toilet Toilet - Labs CBC & Chem 7: 06/16/22 08:40 06/16/22 08:40 Labs: Abnormal Lab Results - Last 24 Hours (Table) 06/15/22 06/16/22 Range/Units 07:57 08:40 MCV 101.0 H (80.0-100.0) fL HDL Cholesterol 60.30 H (40.00-60.00) mg/dL
[2022-06-16 12:23] VITALS: BP 109/69; PULSE 110
--- NOTE | 2022-06-16 12:54 | P.DS ---
Providers Date of admission: 06/14/22 09:28 Expected date of discharge: 06/16/22 Attending physician: Mir Hankins MD Consults: 06/14/22 09:23 Consult Physician Urgent Consulting Provider: Ozzie Hinojosa Consult Reason/Comments: chest pain, afib Do you want consulting provider notified?: Yes Primary care physician: Neo Casillas MD Hospital Course: Discharge Diagnosis: Atrial fibrillation with RVR, continue anticoagulation with Xarelto Nonischemic cardiomyopathy, patient being discharged home on lisinopril, metoprolol, Lasix, and Aldactone. Patient would benefit from Juardiance and Entresto but must be off lisinipril for 48 hours prior to begining in cardiology stated they will consider this medication upon outpatient follow-up Acute on chronic systolic Congestive heart failure with EF less than 20% started on Lasix 20 mg daily Chest pressure likely secondary to above Paroxysmal nocturnal dyspnea likely secondary to above Hypertension Hyperlipidemia Medication noncompliance, patient admits to stopping his metoprolol and lisinopril Hospital Course: Patient is a very pleasant 56-year-old male with a past medical history of hypertension, hyperlipidemia, atrial fibrillation (status post cardioversion and cardiac ablation) on anticoagulation with Xarelto, and bariatric sleeve in 2019. Patient presented to the emergency department with a chief complaint of chest pressure accompanied by mild dyspnea. Patient reports off-and-on for the past few weeks he has noticed that he has been experiencing some exertional dyspnea, orthopnea, paroxysmal nocturnal dyspnea and episodic palpitations. Patient reports again experiencing these episodes while at rest this morning accompanied by significant chest pressure and he knew he needed to come to the emergency department for evaluation. Patient denies having any headache, lightheadedness, dizziness, fevers, chills, diaphoresis, abdominal pain, nausea, vomiting, or experiencing any numbness/tingling/weakness/swelling in his extremities. Upon arrival to the emergency department patient was found to be in A. fib with RVR reportedly with rate in 130s. Patient was given Cardizem bolus and started on Cardizem infusion. EKG was completed revealing atrial fibrillation with RVR to 103 bpm. Chest x-ray revealing concerns of CHF exacerbation with mild cardiomegaly and bilateral pleural effusions and mild interstitial edema. CBC revealing mild thrombocytopenia with platelet count of 141 otherwise normal findings. CMP was unremarkable. Troponin negative at less than 0.012. ProBNP was elevated at 1440. Patient was given 1 dose of Lasix and admitted under our services with consultation to cardiology. Monitored overnight. Troponins were trended all negative at less than 0.0123 draws. Echocardiogram was completed revealing a severely impaired EF less than 20%. Cardiology decreased Lasix to 20 mg daily and added on Aldactone 25 mg daily. Cardiology clearing patient from cardiac perspective for discharge home, stating no lifevest at this time. Patient is medically stable at this time showing no signs of acute distress. Patient being discharged home on Xarelto, metoprolol, lisinopril, furosemide, and spironolactone. Patient to follow-up with PCP in 1-2 days and cardiology within 10 days. Physical exam: Vital signs reviewed and stable. General: Nontoxic, no distress and appears stated age. Derm: Skin warm and dry, normal coloration for ethnicity. Head: Atraumatic, normocephalic and symmetric. Eyes: EOMs intact, no lid lag, and anicteric sclera Mouth: no lip lesions, mucus membranes moist Cardiovascular: Irregularly irregular with normal S1S2, no murmur, positive posterior tibial pulses bilaterally, and cap refill < 2 seconds. Lungs: Respirations even, regular, and unlabored on room air. Lungs CTA bilater ally, no rhonchi, no rales, no wheezing, and no accessory muscle usage. Abdominal: soft, nontender to palpation, no guarding, no appreciable organomegaly Ext: ROM intact. No gross muscle atrophy, no edema, no contractures Neuro: Speech clear, face symmetrical and CN II-XII grossly intact with no noted focal neuro deficits Psych: Alert and oriented to person, place, time, and situation. Appropriate and pleasant affect. A total of 38 minutes of time were spent preparing this complex discharge summary. Pt was discharged on 06/16/22 at 12:50 PM. I reviewed the documentation as provided by the SAMUEL above, who is the original author of this note. I agree with the documented assessment and plan, with the following changes: none Patient Condition at Discharge: Stable Plan - Discharge Summary Discharge Rx Participant: Yes New Discharge Prescriptions: New Spironolactone [Aldactone] 25 mg PO DAILY #90 tab Furosemide [Lasix] 20 mg PO DAILY #90 tab Continue Rivaroxaban [Xarelto] 20 mg PO DAILY #90 tab lisinopriL 2.5 mg PO DAILY Changed Metoprolol Succinate (ER) [Toprol XL] 100 mg PO DAILY #60 tab Discharge Medication List Rivaroxaban [Xarelto] 20 mg PO DAILY #90 tab 07/03/19 [Rx] lisinopriL 2.5 mg PO DAILY 06/14/22 [History] Furosemide [Lasix] 20 mg PO DAILY #90 tab 06/16/22 [Rx] Metoprolol Succinate (ER) [Toprol XL] 100 mg PO DAILY #60 tab 06/16/22 [Rx] Spironolactone [Aldactone] 25 mg PO DAILY #90 tab 06/16/22 [Rx] Follow up Appointment(s)/Referral(s): Ozzie Hinojosa MD [STAFF PHYSICIAN] - 1 Week (Spoke to sales agentKiley. office will call with appointment time) Hi Mcdonough MD [STAFF PHYSICIAN] - 1-2 Days (unable to get through. Please call office to schedule appointment) Activity/Diet/Wound Care/Special Instructions: Please take all your cardiac medications as prescribed Follow up with Dr. Hinojosa in 1 week Monitor your Blood pressure at home, If the top number of your blood pressure remains above 90. Ok to take metoprolol succinate 100mg Activity: As tolerated. Take breaks as needed. Diet: Heart healthy and carb consistent diet. Avoid salts, or foods with hidden salts such as canned or boxed foods and frozen dinners. Extra salt makes your heart work harder and traps the fluid in your body for longer. Special Instructions: Weigh yourself every morning after you urinate. If you gain 3 pounds overnight or more than 5 pounds in one week, call your primary physician and solar system installer for guidance on your medications or they may want to see you in their office. Keep a daily log of your weights and be sure to bring with you at follow up visits with your PCP and solar system installer. Take all of your medications as directed and NEVER skip a dose. It is important to remember to keep all of your doctor's appointments and follow-up as needed. Call your primary care provider and solar system installer if you notice any extra swelling in your legs, ankles, feet or abdomen, if you have a new dry cough, if your shortness of breath worsens with activity or at rest, or if you feel more fatigued. Thank you for allowing us to participate in your care, it was truly a pleasure having you for our patient!!! Discharge Disposition: HOME SELF-CARE
[2022-06-16] MEDS ORDERED: METOPROLOL SUCCINATE (ER) 50 MG TAB.ER.24H PO STA (13:20)
[2022-06-17] MEDS ORDERED: METOPROLOL SUCCINATE (ER) 100 MG TAB.ER.24H PO SCH (09:00)
== END 2022-06-16 14:17 | disposition home or self-care (01) | DRG 291 ==
LOC: EC 07:30 → 3SCARD 09:28
PROVIDERS: ADMIT Family Medicine; ATTEND Family Medicine
DX: I11.0 Hypertensive heart disease with heart failure (principal); I50.23 Acute on chronic systolic (congestive) heart failure; I48.19 Other persistent atrial fibrillation; I42.8 Other cardiomyopathies; I37.1 Nonrheumatic pulmonary valve insufficiency; Z91.14 Patient's other noncompliance with medication regimen; M19.90 Unspecified osteoarthritis, unspecified site; D69.6 Thrombocytopenia, unspecified; I08.3 Combined rheumatic disorders of mitral, aortic and tricuspid valves; E78.5 Hyperlipidemia, unspecified; Z79.01 Long term (current) use of anticoagulants; Z79.1 Long term (current) use of non-steroidal anti-inflammatories (NSAID); Z79.899 Other long term (current) drug therapy; Z82.49 Family history of ischemic heart disease and other diseases of the circulatory system; Z91.040 Latex allergy status; Z91.011 Allergy to milk products; Z91.048 Other nonmedicinal substance allergy status
CPT/HCPCS: 36415; 71046; 80053; 80061; 83690; 83735; 83880; 84484; 85025; 85027; 85610; 85730; 93005; 93306; 96365; 96375; 99291

== ENCOUNTER 2023-03-08 11:54 | Day surgery (SDC) | payer OTHER ==
[2023-03-02 10:27] VITALS: BMI 37.5
[~2023-03-08 11:54] MED LIST changes: +LACTATED RINGERS 1,000 ML IV SCH
[2023-03-08 13:03] LABS: Glucose,Whole Blood 92 mg/dL (70-110)
[2023-03-08] MEDS ORDERED: SODIUM CHLORIDE 0.9% 1,000 ML IV ONE (13:36)
[2023-03-08] MEDS ORDERED: MIDAZOLAM 2 MG/2 ML VIAL ONE (16:00)
[2023-03-08] MEDS ORDERED: LIDOCAINE 2% INJ 20 MG/ML (2 ML VIAL) ONE (16:00)
[2023-03-08] MEDS ORDERED: ETOMIDATE 2 MG/ML 10 ML VIAL ONE (16:00)
[2023-03-08] MEDS ORDERED: PROPOFOL 10 MG/ML 20 ML VIAL IV ONE (16:00)
[2023-03-08] MEDS ORDERED: HEPARIN SODIUM,PORCINE 10,000 UNIT/ML 1 ML VIAL ONE (16:00)
[2023-03-08] MEDS ORDERED: ePHEDrine 50 MG/ML 1 ML VIAL ONE (16:00)
[2023-03-08] MEDS ORDERED: FUROSEMIDE 10 MG/ML 2 ML VIAL ONE (16:00)
[2023-03-08] MEDS ORDERED: fentaNYL (PF) 50 MCG/ML 2 ML AMP ONE (16:00)
[2023-03-08] MEDS ORDERED: HEPARIN SODIUM,PORCINE 5,000 UNIT/ML 1 ML VIAL ONE (16:00)
[2023-03-08] MEDS ORDERED: ONDANSETRON 4 MG/2 ML VIAL ONE (16:00)
[2023-03-08] MEDS ORDERED: SUCCINYLCHOLINE CHLORIDE 200 MG/10 ML VIAL IV ONE (16:00)
--- NOTE | 2023-03-08 16:33 | P.HPCAR ---
History of Present Illness This is Dr. 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 After pulmonary vein isolation, septal ablation and linear ablation left atrium ridge, along with dofetilide 125 mg twice daily he is now become paroxysmal. When last seen in the office he was in A. fib. Today he is in sinus rhythm Denies any chest discomfort dizziness lightheadedness No fever chills cough expectoration ROS: No fever chills or rigors, no cough, phlegm or expectoration, no nausea, vomiting or diarrhea, no hematuria, dysuria, no musculoskeletal complaints, no strokes or seizures, no skin lesions. EXAMINATION: Pulse rate in the 50s, afebrile, blood pressure 135/78 mmHg Normal heart sounds no murmurs Normal breath sounds No rhonchi no crackles REVIEW OF LABS, ECG & MEDICAL DATA Glucose 92 Currently on lisinopril 2.5 mg by mouth daily, spironolactone 25, Xarelto 20 mg daily, metoprolol succinate 25 mg daily, mag oxide and dofetilide 125 g twice daily Physical Exam Vitals: Vital Signs Temp Pulse Resp BP Pulse Ox 03/08/23 13:28 98.3 F 53 L 16 135/78 99 Intake and Output 03/08/23 03/08/23 03/08/23 06:59 14:59 22:59 Intake Total 100 0 Balance 100 0 Intake: IV 100 0 Other: Weight 126.9 kg Past Medical History Past Medical History: Atrial Fibrillation, Hypertension, Osteoarthritis (OA) History of Any Multi-Drug Resistant Organisms: None Reported Past Surgical History: Bariatric Surgery, Cardiac Ablation, Orthopedic Surgery Additional Past Surgical History / Comment(s): ADOMINOPLASTY, EGD. BILAT SHOULDER SX (RT-X3) LT X1. BILAT KNEE SCOPES. CARDIOVERSION Past Anesthesia/Blood Transfusion Reactions: No Reported Reaction Smoking Status: Former smoker - Past Family History Mother Family Medical History: No Reported History Father Family Medical History: Dementia, Hypertension Sister(s) Family Medical History: Hypertension Physical Examination Vital Signs Temp Pulse Resp BP Pulse Ox 03/08/23 13:28 98.3 F 53 L 16 135/78 99 Intake and Output 03/08/23 03/08/23 03/08/23 06:59 14:59 22:59 Intake Total 100 0 Balance 100 0 Intake: IV 100 0 Other: Weight 126.9 kg Results Current Medications Generic Name Dose Route Start Last Admin Trade Name Freq PRN Reason Stop Dose Admin Lactated Ringer's 1,000 mls @ 20 mls/hr 03/08/23 06:09 Lactated Ringers IV 04/07/23 06:10 .Q24H EVETTE Sodium Chloride 1,000 mls @ 50 mls/hr 03/08/23 06:09 Saline 0.9% IV 04/07/23 06:10 .Q20H EVETTE Intake and Output 03/08/23 03/08/23 03/08/23 06:59 14:59 22:59 Intake Total 100 0 Balance 100 0 Intake: IV 100 0 Other: Weight 126.9 kg Patient Weight 03/09/23 06:59 Weight 126.9 kg
[2023-03-08] MEDS ORDERED: LIDOCAINE 1% INJ 10MG/ML (20 ML MDV) ONE (16:40)
[2023-03-08] MEDS ORDERED: LIDOCAINE 1% INJ 10MG/ML (20 ML MDV) SQ ONE (16:47)
[2023-03-08] MEDS ORDERED: HEPARIN SOD,PORK IN 0.45% NACL 25,000 UNIT in 0.45% NACL 1 250ML.BAG IV ONE (17:03)
[2023-03-08] MEDS ORDERED: HEPARIN SODIUM (1,000 UNIT/ML) 1,000 UNIT in SODIUM CHLORIDE 0.9% 1,000 ML IRRIGATION ONE (18:00)
[2023-03-08] MEDS ORDERED: IOPAMIDOL-370 100ML BTL INJ ONE (18:24)
[2023-03-08] MEDS ORDERED: LACTATED RINGERS 1,000 ML IV ONE (18:24)
[2023-03-08] MEDS ORDERED: ACETAMINOPHEN TAB 325 MG TAB PO PRN (19:56)
--- NOTE | 2023-03-08 20:14 | P.EPPROC ---
- EP Procedure Note Electrophysiology Procedure Note: PROCEDURE A. fib ablation with PVI in linear ablation left atrial roof DIAGNOSIS Persistent Atrial fibrillation, symptomatic, refractory to therapy with prior ablation and dofetilide Continues to have paroxysms of A. fib with RVR RESULT No left atrial appendage mass seen on intracardiac echo, mildly thickened pericardium, improved LV systolic function, large right superior and common left sided on veins Successful A. fib ablation/pulmonary vein isolation of all veins using cryo-ablation Complete entrance block in all 4 veins confirmed No evidence for phrenic nerve injury Linear ablation of left atrial roof with complete block Esophageal deflection YES PROCEDURE DETAILS Written informed consent prior to procedure. Patient brought to the EP lab. General anesthesia given. Heparin administered. A city maintained above 300 seconds Both groins prepped and draped per protocol and venous sheaths placed. Esophagus intubated, circa catheter for temperature monitoring an endoscope for possible esophageal deflection. Phrenic nerve monitoring performed. Esophageal temperature monitoring performed. Esophageal deflection performed if circa catheter overlapping with the balloon or circa temperature less than 27.5C Intracardiac echocardiography performed. Pericardium evaluated. Left atrial appendage evaluated. Left atrium evaluated along with pulmonary veins Transseptal catheterization performed under fluoroscopic guidance and intracardiac echo guidance Cryoablation sheath exchanged, balloon catheter along with achieve catheter placed in the left atrium. Pulmonary veins isolated in the following sequence: Left superior pulmonary vein followed by left inferior pulmonary vein, followed by right inferior pulmonary vein and lastly right superior pulmonary vein. Phrenic nerve stimulation along with capture thresholds within the SVC and right superior pulmonary vein to identify the phrenic nerve proximity to the cryo- balloon. Pulmonary veins isolated and confirmed with entrance and exit block. Phrenic nerve integrity confirmed at the end of the procedure Ablation of the left atrial roof performed with sequential lesions from the left superior to the right superior pulmonary veins. Ablation of the electrograms confirmed Diagnostic catheters for the high right atrium, His bundle, coronary sinus placed. LA and RA pressures recorded RA pressure: 27/09/12 LA pressure: 03/08/13 Diagnostic EP study with coronary sinus pacing and recording Baseline measurements: PA interval 142 ms, QRS 110 ms and QT 506 ms AH 65 and HV 35 ms Venous sheaths were removed and hemostasis assured with a closure device. Patient extubated and transferred to recovery PROCEDURES PERFORMED Diagnostic EP study CS pacing and recording Left and right transseptal catheterization Catheter the mapping of the tachycardia Intracardiac echocardiography Pulmonary vein isolation with transseptal and comprehensive EPS, [id number] Left atrial roof line, [id number]
[2023-03-08] MEDS ORDERED: ACETAMINOPHEN IV (For NPO) 1,000 MG in EMPTY BAG 1 BAG IVPB ONE (21:00)
[2023-03-08] MEDS: DOFETILIDE 125 MCG CAP PO SCH (21:12)
[2023-03-09 03:11] VITALS: RESP 18
[2023-03-09 07:12] LABS: African American GFR (CKD) >90 (>60 ml/min/1.73 sqM); Anion Gap 9 mmol/L; Blood Urea Nitrogen 18 mg/dL (9-20); Calcium 9.1 mg/dL (8.4-10.2); Carbon Dioxide 26 mmol/L (22-30); Chloride 101 mmol/L (98-107); Glucose 100 mg/dL (74-99); Non-African American GFR(CKD) >90 (>60 ml/min/1.73 sqM); Potassium 4.6 mmol/L (3.5-5.1); Sodium 136 mmol/L (137-145)
[2023-03-09 07:20] VITALS: BP 104/70; PULSE 81; TEMP 98
[2023-03-09] MEDS: DOFETILIDE 125 MCG CAP PO SCH (08:09)
[2023-03-09] MEDS ORDERED: METOPROLOL SUCCINATE (ER) 25 MG TAB.ER.24H PO SCH (09:00)
[2023-03-09] MEDS ORDERED: MAGNESIUM OXIDE 400 MG TAB PO SCH (09:00)
[2023-03-09] MEDS ORDERED: RIVAROXABAN 20 MG TAB PO SCH (09:00)
[2023-03-09] MEDS ORDERED: SPIRONOLACTONE 25 MG TAB PO SCH (09:00)
--- NOTE | 2023-03-09 09:00 | DS ---
DISCHARGE SUMMARY HOSPITAL COURSE: Mr. Hook underwent an atrial fibrillation ablation yesterday successfully. He has a history of persistent atrial fibrillation that has been difficult to manage. It has been associated with cardiomyopathy, heart failure, and mitral regurgitation. He has undergone a previous ablation with pulmonary vein isolation and septal ablation and left atrial ridge ablation, but this was not successful. Dofetilide was initiated. He had QT prolongation with 500 mcg twice daily as well as 250 mcg twice daily of dofetilide. Finally, we settled in a dose of 125 mcg twice daily and the QT interval remained normal. Unfortunately, he has had breakthrough episodes of paroxysmal atrial fibrillation despite such treatment. He was brought in yesterday and he underwent left atrial roof ablation, which was successful. He also underwent ablation of the left common vein, especially at the antral level and right superior pulmonary vein ablation. The right inferior vein was completely isolated even at the antral level. Intracardiac echo revealed an improvement in LV systolic function and reduction in the size of his left atrium, so all our efforts so far had a solitary effect on his cardiac condition. He is doing well. He has a sore throat, vague sensation in the chest when he takes a deep breath. Otherwise, his vitals are stable. Heart sounds are normal. No rub. No gallop. Groins have healed well. There is no hematoma. No oozing. Lungs are clear. IMPRESSION: 1. Persistent symptomatic atrial fibrillation associated with cardiomyopathy. 2. Increased BMI. 3. Heart failure with cardiomyopathy and significant left atrial enlargement in the past. 4. On dofetilide 125 mcg twice daily since he could not tolerate higher doses on account of QT prolongation. PLAN: Continue dofetilide 125 mcg twice daily. Continue Xarelto 20 mg daily with food. Complete cessation from alcohol use, continuation of cardiomyopathy medications as before. Weight reduction and lifestyle modification. I will see him again in about 2 weeks. MMODL / IJN: [id number] /
== END 2023-03-09 12:07 | disposition home or self-care (01) ==
LOC: CATHEP 11:54 → 6NMEDSUR 19:25 → CATHEP 03-09 12:07
PROVIDERS: ATTEND Internal Medicine Clinical Cardiac Electrophysiology
DX: I48.19 Other persistent atrial fibrillation (principal); I10 Essential (primary) hypertension; M19.90 Unspecified osteoarthritis, unspecified site; Z87.891 Personal history of nicotine dependence; Z82.49 Family history of ischemic heart disease and other diseases of the circulatory system
CPT/HCPCS: 93656; 93657; 80048; C1894 ×2; C1769 ×3; C1760; C1730 ×2; C1731; C1893; C1733; C1766; J2250; J0330; J1644 ×4; J1940; J2405; J2001 ×2; J3010; J0131; J2704; Q9967